=== PATIENT | female | born 1965 | race Caucasian/White ===

== ENCOUNTER → 2019-05-11 19:53 | Outpatient (CLI) | payer OTHER, SELFPAY | PROVIDERS: Visit Provider Physician Assistant | DX: N30.01 Acute cystitis with hematuria (principal) | CPT/HCPCS: 87077; 87086; 87186 ==

== ENCOUNTER → 2020-07-05 07:21 | Outpatient (CLI) | payer OTHER, SELFPAY ==
[2020-07-05 12:14] LABS: Add Manual Diff / Slide Review NO; Basophils Absolute Auto 0 /uL (0-100); Eosinophils Absolute Auto 100 /uL (0-450); Eosinophils Percent Auto 2.1 % (2-4); Hematocrit 40.6 % (36-46); Hemoglobin 13.5 g/dL (12.0-16.0); Lymphocytes Absolute Auto 1000 /uL (1100-4500); Lymphocytes Percent Auto 23.5 % (25-40); Mean Corpuscular HGB Conc 33.3 % (30-36); Mean Corpuscular Hemoglobin 31.3 PG (26-34); Monocytes Absolute Auto 300 /uL (0-900); Monocytes Percent Auto 7.8 % (3-14); Neutrophils Absolute Auto 2900 /uL (1500-7000); Neutrophils Percent Auto 65.6 % (50-75); Platelet Count 143 X10^3/uL (150-400); Red Blood Cell Count 4.32 X10^6/uL (4.0-5.2); Red Cell Distribution Width 13.3 % (11.6-14.8); White Blood Cell Count 4.4 X10^3/uL (4.5-11.0)
[2020-07-05 12:37] LABS: BUN Creatinine Ratio 29.3 (6-22); Blood Urea Nitrogen 12 mg/dL (7-17); Calcium 9.2 mg/dL (8.4-10.2); Carbon Dioxide 27 mmol/L (22-32); Chloride 106 mmol/L (98-107); Cholesterol 168 mg/dL (140-199); Estimated Glomerular Filt Rate > 60.0 mL/min (>60); Glucose 79 mg/dL (70-100); HDL Cholesterol 59 mg/dL (40-60); HEMOLYSIS < 15 (0-50); LDL Cholesterol Calculated 95 mg/dL (<100); Potassium 3.9 mmol/L (3.4-5.1); Sodium 140 mmol/L (137-145); Triglycerides 70 mg/dL (35-150)
[2020-07-05 13:08] LABS: Thyroid Stimulating Hormone 1.69 uIU/mL (0.47-4.68)
== END ==
PROVIDERS: Referring Provider Nurse Practitioner Family; Visit Provider Nurse Practitioner Family
DX: Z00.00 Encounter for general adult medical examination without abnormal findings (principal); R53.83 Other fatigue
CPT/HCPCS: 36415; 80048; 80061; 84443; 85025

== ENCOUNTER 2020-09-06 20:27 | Emergency (ER) | payer OTHER, SELFPAY ==
[2020-09-06 20:31] VITALS: TEMP 36.8; BMI 30.4
--- NOTE | 2020-09-06 20:35 | DI.RAD.S_ITS ---
PROCEDURE: XR FINGER LT MIN 2V INDICATIONS: dog bite TECHNIQUE: AP hand, 2 views of the 2nd finger(s) acquired. COMPARISON: None. FINDINGS: Bones: No fractures or dislocations. No suspicious bony lesions. Soft tissues: No suspicious soft tissue calcifications. No radiopaque foreign body is seen. IMPRESSION: No acute 2nd finger fracture or dislocation. No radiopaque foreign body. Dictated by: Brooks Marshall M.D. on 09/06/2020 at 20:45 Approved by: Brooks Marshall M.D. on 09/06/2020 at 20:45
[2020-09-06 21:53] VITALS: BP 115/67; PULSE 63; O2SAT 98
[2020-09-06] MEDS: TET,DIPH,PERTUSS(ACELL),VAC/PF 0.5 ML SYRINGE IM (21:56)
--- NOTE | 2020-09-06 22:36 | ED_ITS ---
HPI - Animal Bite General Chief Complaint: Animal Bite Stated Complaint: dog bite to left hand Time Seen by Provider: 09/06/20 22:35 Source: patient Mode of arrival: Ambulatory Limitations: no limitations History of Present Illness HPI narrative: Otherwise healthy 55-year-old woman was playing with her 2 dogs when the dogs got into a bit of the tonsil and and trying to separate them 1 of them bit at her fingers and caused her left 1st finger fingernail to avulse. There is no other bite wounds are arenas. She has no other specific complaints. Related Data Home Medications Medication Instructions Recorded Confirmed azelaic acid 15 % topical gel 1 applictn TOP BID 12/01/18 05/11/19 levonorgestrel 20 mcg/24 hours (6 INTRAUTERINE each 12/01/18 05/11/19 yrs) 52 mg intrauterine device metronidazole 1 % topical gel 1 applictn TOP DAILY 12/01/18 05/11/19 Previous Rx's Medication Instructions Recorded phenazopyridine 100 mg tablet 100 mg PO TID PRN 0 Days #6 tab 05/11/19 Allergies Allergy/AdvReac Type Severity Reaction Status Date / Time ciprofloxacin [From Cipro] Allergy Verified 09/06/20 20:31 Review of Systems Review of Systems Narrative: Pertinent positive and negative findings as per HPI Remainder of review of systems is otherwise unremarkable for Constitutional: Fevers, chills, weakness ENT: No sore throat, neck pain, ear pain CV: Chest pain, palpitations, Respiratory: Cough, wheeze, dyspnea GI: Nausea, vomiting, diarrhea, Patient History Medical History (Updated 09/06/20 @ 23:24 by Rosalinda Eric MD) Dermoid cyst of left ovary Social History Smoking Status: Never smoker Smoking Status: Never smoker alcohol intake frequency: holidays/special occasions only Substance Use Type: does not use Exam Narrative Exam Narrative: General: Alert appropriate in no acute distress Respiratory: Able to speak in full sentences, no obvious respiratory distress Skin: No obvious rashes, warm and dry Neurologic: Grossly intact no obvious asymmetries or abnormalities Psych, appropriate insight and affect, cooperative Extremity: Left hand is examined. Completely neurovascularly intact. The index nail has been partially avulsed. There does not appear to be significant damage to the nail bed itself. Approximately half the distal portion of the nail is still firmly attached to the nail bed. Initial Vital Signs Initial Vital Signs: Vital Signs Temperature 98.3 F 09/06/20 20:31 Procedures [facility] Procedure Name of Procedure: Left 1st finger nail removal Side (if applicable): left Technique/Description of procedure performed: Using 3 cc of 0.5% lidocaine the area was anesthetized and with blunt dissection the nail was gently lifted off from the nail bed without complication. Patient tolerated procedure: Well Complications: none Course Orders Ordered: ED Orders 09/06/20 20:35 XR finger LT min 2V Stat Discontinued Medications Diphtheria/Tetanus/Acell Pertussis (Tet,Diph,Pertuss(Acell),Vac/Pf 0.5 Ml Syringe) 0.5 ml IM .ONCE ONE Stop: 09/06/20 21:18 Last Admin: 09/06/20 21:56 Dose: 0.5 ml Documented by: FRANKIE Lidocaine/Sodium Bicarbonate (Lido 1%/Sod Bicarb 8.4% (10ml) 10 Ml Syringe) 10 ml INJ NOW ONE Stop: 09/06/20 22:49 Last Admin: 09/06/20 23:36 Dose: 10 ml Documented by: FRANKIE Vital Signs Vital signs: Vital Signs - 8 hr 09/06/20 20:31 09/06/20 21:53 09/06/20 23:38 Temperature 98.3 F Pulse Rate 63 64 Respiratory Rate 18 Blood Pressure 115/67 108/64 Pulse Oximetry 98 100 [facility] - Animal Bite Medical Records Attestation: I reviewed the patient's medical records. [facility] Narrative Medical decision making narrative: 55-year-old woman with a minor injury to the left 1st finger nail in trying to separate her 2 dogs. With shared decision making we opted to completely remove the nail as the proximal portion had been pulled out of the nail bed and would continue to catch on anything that she was touching until the nail was ripped off accidentally. Titer dressing was placed in the emergency room for hemostasis with very clear instructions to remove this dressing within 1-2 hours and replace it with 1 that was not as restrictive. Patient clearly understands. Went over signs and symptoms of increasing infection and anticipatory guidance for wound healing. She is safe for home discharge Discharge Plan Departure Patient Disposition: Home Clinical Impression: Avulsion of nail Dog bite Qualifiers: Encounter type: initial encounter Qualified Code(s): W54.0XXA - Bitten by dog, initial encounter Instructions: DI for Nail Avulsion Injury Activity Restrictions/Additional Instructions: Thank you for coming in today In interrupting your dogs, you avulsed your fingernail. It does not look like you injured the nail bed so I would expect the new nail to grow out completely normally. The naked bit of tissue that was under the nail will take a day or 2 to begin to heal. Please keep a Band-Aid and some Neosporin or other ointment over that area of your finger and till it is no longer tender. If you notice increasing pain inflammation or other changes it would be very appropriate to have your finger re-evaluated Good luck with your [facility] home. I hope you get to live happily ever after;) Prescriptions: No Action phenazopyridine [Pyridium] 100 mg tablet 100 mg PO TID PRN (Reason: pain) 0 Days Qty: 6 RF: 0 Mirena 20 mcg/24 hours (5 yrs) 52 mg intrauterine device Intrauterine RF: 0 metronidazole [Metrogel] 1 % gel 1 applictn TOP DAILY RF: 0 azelaic acid [Finacea] 15 % gel 1 applictn TOP BID RF: 0
[2020-09-06] MEDS: LIDO 1%/SOD BICARB 8.4% (10ML) 10 ML SYRINGE INJ (23:36)
[2020-09-06 23:38] VITALS: BP 108/64; PULSE 64; RESP 18; O2SAT 100
== END 2020-09-06 23:38 | disposition home or self-care (01) ==
PROVIDERS: Emergency Provider Emergency Medicine
DX: S61.152A Open bite of left thumb with damage to nail, initial encounter (principal); W54.0XXA Bitten by dog, initial encounter; Z23 Encounter for immunization
CPT/HCPCS: 11750; 73140; 90471; 99283; 90715

== ENCOUNTER 2021-04-07 08:15 | Outpatient (RCR) | payer OTHER, SELFPAY ==
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
--- NOTE | 2021-03-02 13:36 | PT.OPPOC ---
Physical, Occupational & Speech Therapy At [facility] Current Diagnoses Pain in left shoulder (03/02/21) Visit Care Team Role Provider Type SULTANA Sy Primary Care Provider Non-Staff Specialty: Medical Address: [address] [place] [address], [phone] Email: Daphne Hauser PA-C Attending Provider Non-Staff Referring Provider Specialty: Medical Address: [address] [place] [address], [id number] Email: Plan Of Care PT-OP-T Assessment and Plan Start: 03/02/21 08:24 Freq: Status: Active Protocol: Document 03/02/21 08:15 AMB (Rec: 03/02/21 13:35 AMB [email or web address]) Physical Therapy Assessment Rehab Potential Rehabilitation Potential Good Evaluation Complexity Number of Personal Factors/Comorbidities 1-2 Number of Body Systems Impaired 4 or More Clinical Presentation at Evaluation Evolving Impairments Impairments Functional Activities,Pain,ROM ,Strength Goals Four Impairment Pain Care Home Goal (LTG) Sy will be able to sleep on her left shoulder at night without an increase in pain. LTG Duration 8 weeks Three Impairment Strength Short Term Goal (STG) Sy will improve her shoulder abduction strength to 4+/5 or greater. STG Duration 4 weeks Two Impairment HEP Short Term Goal (STG) Sy will be independent and consistent with a HEP to improve her L shoulder strength and ROM. STG Duration 4 weeks Care Home Goal (LTG) Sy will return to yoga and her aquatic exercise without an increase in her baseline shoulder pain. LTG Duration 8 weeks One Impairment ROM Short Term Goal (STG) Sy will improve her shoulder flexion AROM to 170 degrees. STG Duration 4 weeks Assessment Summary Assessment Sy attends physical therapy with recent onset increase in left shoulder pain . Testing for glenohumeral impingement was positive, but negative for rotator cuff pathology. She does have poor posture and scapular winging. She will benefit from physical therapy to first help her control the inflammation and then strengthen appropriately to help her return to exercise re: scuba diving, yoga, aquatics. Physical Therapy Plan Frequency and Duration Frequency of Treatment 2x/Week Duration of Treatment 8 weeks Plan of Care Start Date 03/02/21 Plan of Care End Date 04/27/21 Therapeutic Interventions Therapeutic Interventions Joint Mobilizations,Manual Therapy,Neuromuscular Re- education,Self-Care/Home Management,Therapeutic Activities,Therapeutic Exercises Modalities Cold Pack/Ice Massage,Electric Stimulation,Hot Packs, Ultrasound Next Visit Focus/Plan Next Note Type Treatment Note Next Visit Plan Begin HEP: stretching, RTC strengthening, inflammation control Plan of Care Dates Plan of Care Start Date 03/02/21 Plan of Care End Date 04/27/21 Electronically Signed by: Ashtyn Thomas, PT 03/02/21 [id number] Please Sign and Return: I have reviewed this Plan of Care and certify that the skilled therapy services above are required to meet the patient?s needs. Physician Signature Date Printed Name and Credentials Clinical Instructor Signature Printed Name and Credentials
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
== END 2021-05-07 09:29 ==
LOC: PHYS 08:15
PROVIDERS: PCP Nurse Practitioner Family; Referring Provider Physician Assistant; Visit Provider Physician Assistant
DX: M25.512 Pain in left shoulder (principal)
CPT/HCPCS: 97014; 97110; 97112; 97140; 97162; 97535; G0283

== ENCOUNTER → 2021-09-27 16:15 | Outpatient (CLI) | payer OTHER, SELFPAY ==
[2021-09-27 18:03] LABS: Follicle Stimulating Hormone 53.2 mIU/mL
[2021-09-29 18:07] LABS: Antithrombin Activity 98 % (75-135); Antithrombin Antigen 116 % (72-124)
== END ==
PROVIDERS: PCP Nurse Practitioner Family; Referring Provider Nurse Practitioner Family; Visit Provider Nurse Practitioner Family
DX: Z83.2 Family history of diseases of the blood and blood-forming organs and certain disorders involving the immune mechanism (principal)
CPT/HCPCS: 36415; 83001; 85300; 85301

== ENCOUNTER → 2021-11-22 18:49 | Outpatient (CLI) | payer OTHER, SELFPAY | PROVIDERS: PCP Nurse Practitioner Family; Visit Provider Nurse Practitioner Family | DX: R35.0 Frequency of micturition (principal) | CPT/HCPCS: 87077; 87086; 87186 ==

== ENCOUNTER → 2022-09-12 19:05 | Outpatient (CLI) | payer OTHER, SELFPAY ==
--- NOTE | 2022-09-12 19:07 | DI.MRI.S_ITS ---
PROCEDURE: MR SHOULDER LT WO CON INDICATIONS: left shoulder pain TECHNIQUE: Noncontrast oblique coronal T2 fast spin echo with fat saturation, oblique sagittal T1 spin echo and T2 fast spin echo with fat saturation, axial T1 spin echo and T2 fast spin echo with fat saturation through the shoulder. COMPARISON: [facility], CR, XR SHOULDER 2+ VIEWS LEFT, 07/02/2022, 14:42. FINDINGS: Image quality: Excellent. Rotator cuff: Moderate grade partial-thickness intrasubstance and articular surface tears of the mid/inferior subscapularis tendon at the humeral insertion site extending to the musculotendinous junction. Low-grade partial-thickness intrasubstance tearing of the anterior and mid supraspinatus tendon at the humeral insertion site extending the musculotendinous junction. Low-grade partial-thickness articular surface tearing of the mid and posterior infraspinatus tendon at the humeral insertion site extending to the musculotendinous junction. Teres minor is intact. No rotator cuff atrophy. Bones and bursae: No bone marrow contusions or fractures. Mild glenohumeral and acromioclavicular joint degeneration. The acromion demonstrates conventional anatomy, without an os acromiale. No pathologic subacromial-subdeltoid or subcoracoid bursal fluid is present. Capsule and soft tissues: Irregularity and undercutting of the posterosuperior glenoid labrum. The long head of the biceps tendon demonstrates normal location and morphology. The rotator interval appears normal, without fibrosis. The coracohumeral ligament is normal in thickness. IMPRESSION: 1. Partial-thickness tears of the subscapularis, supraspinatus, and infraspinatus tendons. No full-thickness rotator cuff tear. 2. Acromioclavicular and glenohumeral joint osteoarthritis. 3. Glenoid labral tearing. Dictated by: Claudette Russell M.D. on 09/13/2022 at 9:05 Approved by: Claudette Russell M.D. on 09/13/2022 at 9:07
== END ==
PROVIDERS: Family Provider Nurse Practitioner Family; PCP Nurse Practitioner Family; Referring Provider Orthopaedic Surgery; Visit Provider Orthopaedic Surgery
DX: M75.112 Incomplete rotator cuff tear or rupture of left shoulder, not specified as traumatic (principal); M19.012 Primary osteoarthritis, left shoulder; S43.492A Other sprain of left shoulder joint, initial encounter; M25.512 Pain in left shoulder
CPT/HCPCS: 73221

== ENCOUNTER → 2022-10-26 06:53 | Outpatient (CLI) | payer OTHER, SELFPAY ==
[2022-10-26 07:51] LABS: Add Manual Diff / Slide Review NO; Basophils Absolute Auto 100 /uL (0-100); Basophils Percent Auto 1.5 % (0-2); Eosinophils Absolute Auto 100 /uL (0-450); Eosinophils Percent Auto 2.5 % (2-4); Hematocrit 40.4 % (36-46); Hemoglobin 13.8 g/dL (12.0-16.0); Lymphocytes Absolute Auto 1400 /uL (1100-4500); Lymphocytes Percent Auto 36.4 % (25-40); Mean Corpuscular HGB Conc 34.3 % (30-36); Mean Corpuscular Hemoglobin 31.5 PG (26-34); Mean Corpuscular Volume 92.1 fL (80-100); Monocytes Absolute Auto 400 /uL (0-900); Monocytes Percent Auto 9.1 % (3-14); Neutrophils Absolute Auto 2000 /uL (1500-7000); Neutrophils Percent Auto 50.5 % (50-75); Platelet Count 161 X10^3/uL (150-400); Red Blood Cell Count 4.39 X10^6/uL (4.0-5.2); Red Cell Distribution Width 13.3 % (11.6-14.8); White Blood Cell Count 3.9 X10^3/uL (4.5-11.0)
[2022-10-26 08:29] LABS: Alanine Aminotransferase 21 IU/L (<35); Albumin 4.3 g/dL (3.5-5.0); Albumin Globulin Ratio 1.6 (1.0-2.8); Alkaline Phosphatase 49 U/L (38-126); Aspartate Aminotransferase 22 IU/L (14-36); Bilirubin Total 1.4 mg/dL (0.2-1.3); Blood Urea Nitrogen 9 mg/dL (7-17); Calcium 9.2 mg/dL (8.4-10.2); Carbon Dioxide 26 mmol/L (22-32); Chloride 107 mmol/L (98-107); Cholesterol 166 mg/dL (140-199); Estimated Glomerular Filt Rate > 60 mL/min (>60); Globulin 2.7 g/dL (1.7-4.1); Glucose 88 mg/dL (70-100); HDL Cholesterol 61 mg/dL (40-60); HEMOLYSIS < 15 (0-50); LDL Cholesterol Calculated 88 mg/dL (<100); Potassium 4.4 mmol/L (3.4-5.1); Sodium 140 mmol/L (137-145); Triglycerides 83 mg/dL (35-150)
== END ==
PROVIDERS: Family Provider Nurse Practitioner Family; PCP Nurse Practitioner Family; Referring Provider Nurse Practitioner Family; Visit Provider Nurse Practitioner Family
DX: Z00.00 Encounter for general adult medical examination without abnormal findings (principal)
CPT/HCPCS: 36415; 80053; 80061; 84443; 85025

== ENCOUNTER 2023-01-23 08:45 | Outpatient (RCR) | payer OTHER, SELFPAY ==
--- NOTE | 2022-10-02 17:54 | PT.OIE ---
Current Diagnoses Edema, unspecified (10/02/22) Past Medical History (Last Updated 03/25/19 @ 09:30 by Alize Castañeda MD) Dermoid cyst of left ovary Visit Care Team Role Provider Type SULTANA Sy Family Provider Non-Staff Primary Care Provider Specialty: Medical Address: [address] [place] [address], [place], [phone] Email: Mable Rome DNP, SULTANA Attending Provider Non-Staff Referring Provider Specialty: Medical Address: [address] [place] [address], [place], [address] Email: Physical Therapy Initial Evaluation PT-OP-A Visit Information Start: 10/01/22 17:44 Freq: Status: Active Protocol: Document 10/02/22 14:35 SAK (Rec: 10/02/22 16:16 SAK [id number]) Out-Patient Physical Therapy Visit Information Visit Information Visit Type Initial Evaluation Visit Start Time 14:36 Visit Stop Time 16:00 Total Visit Minutes 84 Visit Number 1 Evaluation Information Evaluation Date 10/02/22 PT-OP-B Current Condition Start: 10/01/22 17:44 Freq: Status: Active Protocol: Document 10/02/22 14:35 SAK (Rec: 10/02/22 16:16 SAK [id number]) Current Condition History of Current Condition Onset Date lifetime Current Complaints swelling beata LE's History of Current Condition Reports self-diagnosed after seeing a post online about a person with lipedema, did research online read books, after 4 months went to nurse practicitioner to discuss as she felt she had all symptoms. Referred to Sherry Ramirez for lymphatic massage, felt helpful. Per researched recommendations started going to the pool 2x/wk for 30 min, new goal 3x/wk x 1 hour finds helpful in decreasing edema. Has a dry brush for self- massage, bought a wedge pillow for elevating legs. Doesn't tolerate compression well, has ordered several pairs panty hose style but is only able to tolerate for a couple hours a few times per week. . Travels a lot. Seeing Randa Beal PT for shoulder dysfunction. New dietary and vitamin supplements goals; eating [place] nuts and flax daily, multivitamin, 2000 Vit D, calcium, tumeric, walks dogdrink a lot of water. States she is the heaviest she has ever been feeling swelling is a part of this. Just ordered a vibration plate . Has played around with diet . Pt. is a vegetarian, minimal dairy. Swelling increases with prolonged standing, legs dependent salt. Decreased with massage, pool, elevation. Reports she bruises easily. Prior Treatments and Tests Massage therapy Treatment Goals Patient/Caregiver Goals compression 3x/wk x 3 hours pool 3x/wk shoulder PT 3x/wk. Prior Functional Status Baseline Function- ADL's Independent Baseline Function- Mobility Independent Baseline Function- Gait no limitations Baseline Function- Recreation/Hobbies no limitations Current Functional Impairments (Reported) Functional Limitations- ADL's takes more time Functional Limitations- Mobility/Gait limited gait due to heaviness of legs PT-OP-J Posture/Palpation/Skin Start: 10/01/22 17:44 Freq: Status: Active Protocol: Document 10/02/22 14:35 [facility] (Rec: 10/04/22 17:54 [facility] [id number]) Palpation Assessment Location beata LE Palpation Findings Edema,Tenderness Palpation Details excess fatty deposits worst at lateral thighs, distal thighs with dimpling, tenderness PT-OP-K Range of Motion Start: 10/01/22 17:44 Freq: Status: Active Protocol: Document 10/02/22 14:35 [facility] (Rec: 10/04/22 17:54 [facility] [id number]) Hip Goniometric Range of Motion Hip beata Hip ROM WFL Yes Knee Goniometric Range of Motion Knee beata Knee ROM WFL Yes Ankle and Foot Goniometric Range of Motion Ankle and Foot beata Ankle/Foot ROM WFL Yes PT-OP-N Lymphedema Start: 10/01/22 17:44 Freq: Status: Active Protocol: Document 10/02/22 14:35 [facility] (Rec: 10/02/22 16:16 [facility] [id number]) Lymphedema Measurements Lower Extremity Circumference Measurements Left Affected MT Heads 24.8 cm Mid-foot 25 cm Medial Malleolus 27 cm 10 cm From Medial Malleolus 31.2 cm 20 cm From Medial Malleolus 40.1 cm 30 cm From Medial Malleolus 45 cm 40 cm From Medial Malleolus 43.5 cm 50 cm From Medial Malleolus 53.9 cm 60 cm From Medial Malleolus 63.8 cm 70 cm From Medial Malleolus 69.9 cm 80 cm From Medial Malleolus 73.7 cm Knee Joint 49.8 cm Right Affected MT Heads 25.2 cm Mid-foot 24.8 cm Medial Malleolus 28.2 cm 10 cm From Medial Malleolus 32.5 cm 20 cm From Medial Malleolus 41.2 cm 30 cm From Medial Malleolus 45 cm 40 cm From Medial Malleolus 44.3 cm 50 cm From Medial Malleolus 53.3 cm 60 cm From Medial Malleolus 66.2 cm 70 cm From Medial Malleolus 71.8 cm 80 cm From Medial Malleolus 76.5 cm Knee Joint 48 cm PT-OP-Q Treatments Start: 10/01/22 17:44 Freq: Status: Active Protocol: Document 10/02/22 14:35 [facility] (Rec: 10/04/22 17:54 [facility] [id number]) Lymphedema Treatment Compression Garment Assessment Compression Garment Assessment Details Discussion of options, shown examples online, discussed levels of compression and benefits, wearing schedule, importance of consistency Patient Education Lymphedema Pathology patient educated Lymphedema Prevention issued written handouts Compression Garments discussed as above Self Manual Lymphatic Drainage discussed and given video source for home ed PT-OP-T Assessment and Plan Start: 10/01/22 17:44 Freq: Status: Active Protocol: Document 10/02/22 14:35 [facility] (Rec: 10/02/22 16:16 [facility] [id number]) Physical Therapy Assessment Rehab Potential Rehabilitation Potential Good Evaluation Complexity Number of Personal Factors/Comorbidities 1-2 Number of Body Systems Impaired 3 Clinical Presentation at Evaluation Evolving Impairments Impairments Activity Tolerance,Edema Goals Two Impairment swelling beata LE's with signs and symptoms consistent with lipedema Short Term Goal (STG) Instruct patient in all aspects of lipedema management including skin care, self-MLD , compression, lymphedema ex STG Duration 11/02/22 Guest Relations Associate Goal (LTG) Decrease lipedema to stable level (no inc or dec greater than 1 cm over the course of 1 week), assist patient in obtaining effective compression that she is able to tolerate, and assure independence with self MLD, lymphedema exercises LTG Duration 12/02/22 One Impairment lymphedema life impact scale Impairment 22% Short Term Goal (STG) Decrease lymphedema life impact scale to no greater than 15% as measure of improved function and quality of life STG Duration 11/02/22 Residential Goal (LTG) Decrease score to no greater than 10% as measure of improved function and quality of life. 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 We discussed recommended treatment with skin care, manual lymphatic drainage, compression and lymphedema exercises. Per patient research she has obtained several pant-hose style compression stockings of various compression level but states she doesn't tolerate compression well (about 2 hours/day several times per week). She has started doing aquatic exercise mostly walking in water, is doing some self-massage, is looking into diet and supplement recommendations. Looking into support groups online, would like a local one. Feel she would benefit from PT to decrease her lipedema, assure safe and effective self massage, instruct in lymphedema exercises, assure she obtains effective compression that she can tolerate, and educate in importance of skin care all so she can self-manage her lipedema. Physical Therapy Plan Frequency and Duration Frequency of Treatment 2x/Week Duration of treatment (weeks) 8 Plan of Care Start Date 10/02/22 Plan of Care End Date 12/02/22 Therapeutic Interventions Therapeutic Interventions Home Exercise Program, Lymphedema Management,Manual Therapy,Patient/Caregiver Education,Self-Care/Home Management,Taping,Therapeutic Exercises Next Visit Focus/Plan Next Note Type Treatment Note Next Visit Plan MLD beata LE's, further problem- solving compression for beata LE 's, skin care and lymphedema exercise education.
--- NOTE | 2022-10-02 17:55 | PT.OPPOC ---
Physical, Occupational & Speech Therapy At [facility] Current Diagnoses Edema, unspecified (10/02/22) Visit Care Team Role Provider Type SULTANA Sy Family Provider Non-Staff Primary Care Provider Specialty: Medical Address: [address] [place] [address], [phone] Email: Mable Rome DNP, ARNP Attending Provider Non-Staff Referring Provider Specialty: Medical Address: [address] [place] [address], [id number] Email: Plan Of Care PT-OP-T Assessment and Plan Start: 10/01/22 17:44 Freq: Status: Active Protocol: Document 10/02/22 14:35 [facility]AK (Rec: 10/02/22 16:16 SAK [id number]) Physical Therapy Assessment Rehab Potential Rehabilitation Potential Good Evaluation Complexity Number of Personal Factors/Comorbidities 1-2 Number of Body Systems Impaired 3 Clinical Presentation at Evaluation Evolving Impairments Impairments Activity Tolerance,Edema Goals Two Impairment swelling beata LE's with signs and symptoms consistent with lipedema Short Term Goal (STG) Instruct patient in all aspects of lipedema management including skin care, self-MLD , compression, lymphedema ex STG Duration 11/02/22 Alf Goal (LTG) Decrease lipedema to stable level (no inc or dec greater than 1 cm over the course of 1 week), assist patient in obtaining effective compression that she is able to tolerate, and assure independence with self MLD, lymphedema exercises LTG Duration 12/02/22 One Impairment lymphedema life impact scale Impairment 22% Short Term Goal (STG) Decrease lymphedema life impact scale to no greater than 15% as measure of improved function and quality of life STG Duration 11/02/22 Programming Specialist Goal (LTG) Decrease score to no greater than 10% as measure of improved function and quality of life. 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 We discussed recommended treatment with skin care, manual lymphatic drainage, compression and lymphedema exercises. Per patient research she has obtained several pant-hose style compression stockings of various compression level but states she doesn't tolerate compression well (about 2 hours/day several times per week). She has started doing aquatic exercise mostly walking in water, is doing some self-massage, is looking into diet and supplement recommendations. Looking into support groups online, would like a local one. Feel she would benefit from PT to decrease her lipedema, assure safe and effective self massage, instruct in lymphedema exercises, assure she obtains effective compression that she can tolerate, and educate in importance of skin care all so she can self-manage her lipedema. Physical Therapy Plan Frequency and Duration Frequency of Treatment 2x/Week Duration of treatment (weeks) 8 Plan of Care Start Date 10/02/22 Plan of Care End Date 12/02/22 Therapeutic Interventions Therapeutic Interventions Home Exercise Program, Lymphedema Management,Manual Therapy,Patient/Caregiver Education,Self-Care/Home Management,Taping,Therapeutic Exercises Next Visit Focus/Plan Next Note Type Treatment Note Next Visit Plan MLD beata LE's, further problem- solving compression for beata LE 's, skin care and lymphedema exercise education. Plan of Care Dates Plan of Care Start Date 10/02/22 Plan of Care End Date 12/02/22 Electronically Signed by: Rosa Maria Michelle, PT 10/04/22 2353 If you are in agreement with this Plan of Care, please return a signed and dated copy. I have reviewed this Plan of Care and certify that the skilled therapy services above are required to meet the patient?s needs. Physician Signature Date Printed Name and Credentials Clinical Instructor Signature Printed Name and Credentials
--- NOTE | 2022-10-11 14:02 | PT.OTN ---
Addendum entered and electronically signed by Rosa Maria Michelle, PT 10/25/22 14:03: Addendum; treatment visit stop time 12:02. Original Note: Current Diagnoses Edema, unspecified (10/25/22) Physical Therapy Treatment Note PT-OP-A Visit Information Start: 10/01/22 17:44 Freq: Status: Active Protocol: Document 10/25/22 10:32 [facility]AK (Rec: 10/25/22 10:35 SAK [id number]) Out-Patient Physical Therapy Visit Information Visit Information Visit Type Treatment Note Visit Start Time 10:32 Visit Stop Time 04:00 Total Visit Minutes 90 Visit Number 4 Evaluation Information Evaluation Date 10/02/22 PT-OP-B Current Condition Start: 10/01/22 17:44 Freq: Status: Active Protocol: Document 10/11/22 10:29 [facility]AK (Rec: 10/11/22 10:40 SAK [id number]) Current Condition History of Current Condition Onset Date lifetime Current Complaints swelling beata LE's History of Current Condition Reports self-diagnosed after seeing a post online about a person with lipedema, did research online read books, after 4 months went to nurse practicitioner to discuss as she felt she had all symptoms. Referred to Sherry Ramirez for lymphatic massage, felt helpful. Per researched recommendations started going to the pool 2x/wk for 30 min, new goal 3x/wk x 1 hour finds helpful in decreasing edema. Has a dry brush for self- massage, bought a wedge pillow for elevating legs. Doesn't tolerate compression well, has ordered several pairs panty hose style but is only able to tolerate for a couple hours a few times per week. . Travels a lot. Seeing Randa Beal PT for shoulder dysfunction. New dietary and vitamin supplements goals; eating [place] nuts and flax daily, multivitamin, 2000 Vit D, calcium, tumeric, walks dogdrink a lot of water. States she is the heaviest she has ever been feeling swelling is a part of this. Just ordered a vibration plate . Has played around with diet . Pt. is a vegetarian, minimal dairy. Swelling increases with prolonged standing, legs dependent salt. Decreased with massage, pool, elevation. Reports she bruises easily. Prior Treatments and Tests Massage therapy PT-OP-J Posture/Palpation/Skin Start: 10/01/22 17:44 Freq: Status: Active Protocol: Document 10/02/22 14:35 [facility]AK (Rec: 10/04/22 17:54 SAK [id number]) Palpation Assessment Location beata LE Palpation Findings Edema,Tenderness Palpation Details excess fatty deposits worst at lateral thighs, distal thighs with dimpling, tenderness PT-OP-K Range of Motion Start: 10/01/22 17:44 Freq: Status: Active Protocol: Document 10/02/22 14:35 [facility]AK (Rec: 10/04/22 17:54 [facility] [id number]) Hip Goniometric Range of Motion Hip beata Hip ROM WFL Yes Knee Goniometric Range of Motion Knee beata Knee ROM WFL Yes Ankle and Foot Goniometric Range of Motion Ankle and Foot beata Ankle/Foot ROM WFL Yes PT-OP-N Lymphedema Start: 10/01/22 17:44 Freq: Status: Active Protocol: Document 10/25/22 10:32 SAK (Rec: 10/25/22 10:38 [facility] [id number]) Lymphedema Measurements Lower Extremity Circumference Measurements Left Affected MT Heads 24.8 cm PT-OP-Q Treatments Start: 10/01/22 17:44 Freq: Status: Active Protocol: Document 10/25/22 10:32 SAK (Rec: 10/25/22 10:39 SAK [id number]) Lymphedema Treatment Manual Lymphatic Drainage Location for beata LE's Duration 40 Comments supine, s/l, and prone Use of pneumatic pump left LE while supine, PT MLD to trunk and right LE during pump use Sequential Lymphedema Exercises Location Sci-Fit x 5 min after MLD to facilitate lymphatic flow PT-OP-T Assessment and Plan Start: 10/01/22 17:44 Freq: Status: Active Protocol: Document 10/25/22 10:32 SAK (Rec: 10/25/22 10:35 [facility] [id number]) Physical Therapy Assessment Impairments Impairments Activity Tolerance,Edema Goals Two Impairment swelling beata LE's with signs and symptoms consistent with lipedema Short Term Goal (STG) Instruct patient in all aspects of lipedema management including skin care, self-MLD , compression, lymphedema ex STG Duration 11/02/22 Mcc Goal (LTG) Decrease lipedema to stable level (no inc or dec greater than 1 cm over the course of 1 week), assist patient in obtaining effective compression that she is able to tolerate, and assure independence with self MLD, lymphedema exercises LTG Duration 12/02/22 One Impairment lymphedema life impact scale Impairment 22% Short Term Goal (STG) Decrease lymphedema life impact scale to no greater than 15% as measure of improved function and quality of life STG Duration 11/02/22 Mcc Goal (LTG) Decrease score to no greater than 10% as measure of improved function and quality of life. LTG Duration 12/02/22 Assessment Summary Assessment Decreased circumferential measurements after compression pump and MLD. given info for [employer] to obtain lymphedema pump for home use. Patient to pursue and PT to assist as needed. Patient trial layering of compression for first time today. Physical Therapy Plan Frequency and Duration Frequency of Treatment 2x/Week Duration of treatment (weeks) 8 Plan of Care Start Date 10/02/22 Plan of Care End Date 12/02/22 Therapeutic Interventions Therapeutic Interventions Home Exercise Program, Lymphedema Management,Manual Therapy,Patient/Caregiver Education,Self-Care/Home Management,Taping,Therapeutic Exercises Next Visit Focus/Plan Next Note Type Treatment Note Next Visit Plan circumferential measurements MLD beata LE's, further problem- solving compression for beata LE 's, use of compression pump, skin care and lymphedema exercises. Patient to pursue pump through [employer]; information given to patient today.
--- NOTE | 2022-10-18 16:24 | PT.OTN ---
Current Diagnoses Edema, unspecified (10/18/22) Physical Therapy Treatment Note PT-OP-A Visit Information Start: 10/01/22 17:44 Freq: Status: Active Protocol: Document 10/18/22 10:32 [facility]AK (Rec: 10/18/22 10:58 [facility] [id number]) Out-Patient Physical Therapy Visit Information Visit Information Visit Type Treatment Note Visit Note Some of pain and discomfort is back in ankles possibly due to having more carbs. Has been pretty good about wearing compression but hasn't the past couple days, felt overwhelmed with having company and other medical appointments but overall gradually increasing her wear. Has gone to pool a couple days over the past week. Visit Start Time 10:33 Visit Stop Time 12:03 Total Visit Minutes 90 Visit Number 3 Evaluation Information Evaluation Date 10/02/22 PT-OP-B Current Condition Start: 10/01/22 17:44 Freq: Status: Active Protocol: Document 10/11/22 10:29 SAK (Rec: 10/11/22 10:40 [facility] [id number]) Current Condition History of Current Condition Onset Date lifetime Current Complaints swelling beata LE's History of Current Condition Reports self-diagnosed after seeing a post online about a person with lipedema, did research online read books, after 4 months went to nurse practicitioner to discuss as she felt she had all symptoms. Referred to Sherry Ramirez for lymphatic massage, felt helpful. Per researched recommendations started going to the pool 2x/wk for 30 min, new goal 3x/wk x 1 hour finds helpful in decreasing edema. Has a dry brush for self- massage, bought a wedge pillow for elevating legs. Doesn't tolerate compression well, has ordered several pairs panty hose style but is only able to tolerate for a couple hours a few times per week. . Travels a lot. Seeing Randa Beal PT for shoulder dysfunction. New dietary and vitamin supplements goals; eating [place] nuts and flax daily, multivitamin, 2000 Vit D, calcium, tumeric, walks dogdrink a lot of water. States she is the heaviest she has ever been feeling swelling is a part of this. Just ordered a vibration plate . Has played around with diet . Pt. is a vegetarian, minimal dairy. Swelling increases with prolonged standing, legs dependent salt. Decreased with massage, pool, elevation. Reports she bruises easily. Prior Treatments and Tests Massage therapy PT-OP-J Posture/Palpation/Skin Start: 10/01/22 17:44 Freq: Status: Active Protocol: Document 10/02/22 14:35 [facility] (Rec: 10/04/22 17:54 [facility] [id number]) Palpation Assessment Location beata LE Palpation Findings Edema,Tenderness Palpation Details excess fatty deposits worst at lateral thighs, distal thighs with dimpling, tenderness PT-OP-K Range of Motion Start: 10/01/22 17:44 Freq: Status: Active Protocol: Document 10/02/22 14:35 SAK (Rec: 10/04/22 17:54 [facility] [id number]) Hip Goniometric Range of Motion Hip beata Hip ROM WFL Yes Knee Goniometric Range of Motion Knee beata Knee ROM WFL Yes Ankle and Foot Goniometric Range of Motion Ankle and Foot beata Ankle/Foot ROM WFL Yes PT-OP-N Lymphedema Start: 10/01/22 17:44 Freq: Status: Active Protocol: Document 10/02/22 14:35 [facility] (Rec: 10/02/22 16:16 [facility] [id number]) Lymphedema Measurements Lower Extremity Circumference Measurements Left Affected MT Heads 24.8 cm Mid-foot 25 cm Medial Malleolus 27 cm 10 cm From Medial Malleolus 31.2 cm 20 cm From Medial Malleolus 40.1 cm 30 cm From Medial Malleolus 45 cm 40 cm From Medial Malleolus 43.5 cm 50 cm From Medial Malleolus 53.9 cm 60 cm From Medial Malleolus 63.8 cm 70 cm From Medial Malleolus 69.9 cm 80 cm From Medial Malleolus 73.7 cm Knee Joint 49.8 cm Right Affected MT Heads 25.2 cm Mid-foot 24.8 cm Medial Malleolus 28.2 cm 10 cm From Medial Malleolus 32.5 cm 20 cm From Medial Malleolus 41.2 cm 30 cm From Medial Malleolus 45 cm 40 cm From Medial Malleolus 44.3 cm 50 cm From Medial Malleolus 53.3 cm 60 cm From Medial Malleolus 66.2 cm 70 cm From Medial Malleolus 71.8 cm 80 cm From Medial Malleolus 76.5 cm Knee Joint 48 cm PT-OP-Q Treatments Start: 10/01/22 17:44 Freq: Status: Active Protocol: Document 10/18/22 10:32 SAK (Rec: 10/18/22 12:12 [facility] [id number]) Cardio Equipment Recumbent Stepper (Sci-Fit) Duration (Minutes) 5 Resistance 1 Seat Position 12 Other to facilitate lymphatic flow after MLD and donning compression Lymphedema Treatment Manual Lymphatic Drainage Location for beata LE's Duration 40 Comments supine, s/l, and prone Use of pneumatic pump left LE while supine, PT MLD to trunk and right LE during pump use Lymphedema Wrapping Materials Patient donned compression stockings 10-15 mm Hg Sequential Lymphedema Exercises Location Sci-Fit x 5 min after MLD to facilitate lymphatic flow Compression Garment Assessment Compression Garment Assessment Details Patient brought all compression options she currently has for PT assessment, discussed layering , best garment 20-30 mm Hg but patient tolerates poorly, recommended best compressin is compression patient is able and willing to wear. Patient Education Lymphedema Prevention issued written handouts Lymphedema Precautions issued handouts Compression Garments discussed as above Self Manual Lymphatic Drainage given names of lymphatic pump companies Sequential Lymphedema Exercises Sci-Fit after MLD today. Has been issued written instructions PT-OP-T Assessment and Plan Start: 10/01/22 17:44 Freq: Status: Active Protocol: Document 10/18/22 10:32 [facility] (Rec: 10/18/22 10:58 [facility] [id number]) Physical Therapy Assessment Impairments Impairments Activity Tolerance,Edema Goals Two Impairment swelling beata LE's with signs and symptoms consistent with lipedema Short Term Goal (STG) Instruct patient in all aspects of lipedema management including skin care, self-MLD , compression, lymphedema ex STG Duration 11/02/22 Irrigation Equipment Mechanic Goal (LTG) Decrease lipedema to stable level (no inc or dec greater than 1 cm over the course of 1 week), assist patient in obtaining effective compression that she is able to tolerate, and assure independence with self MLD, lymphedema exercises LTG Duration 12/02/22 One Impairment lymphedema life impact scale Impairment 22% Short Term Goal (STG) Decrease lymphedema life impact scale to no greater than 15% as measure of improved function and quality of life STG Duration 11/02/22 Irrigation Equipment Mechanic Goal (LTG) Decrease score to no greater than 10% as measure of improved function and quality of life. LTG Duration 12/02/22 Assessment Summary Assessment Good tolerance for sequential pneumatic pump as long as kept no greater than 31 mm Hg, otherwise painful. Good tolerance for MLD, has several compression options though poor tolerance for 20-30 mm Hg . Further discussion of donning aids with patient planning to look at options. Physical Therapy Plan Frequency and Duration Frequency of Treatment 2x/Week Duration of treatment (weeks) 8 Plan of Care Start Date 10/02/22 Plan of Care End Date 12/02/22 Therapeutic Interventions Therapeutic Interventions Home Exercise Program, Lymphedema Management,Manual Therapy,Patient/Caregiver Education,Self-Care/Home Management,Taping,Therapeutic Exercises Next Visit Focus/Plan Next Note Type Treatment Note Next Visit Plan MLD beata LE's, further problem- solving compression for beata LE 's, skin care and lymphedema exercise education.
--- NOTE | 2022-10-25 12:03 | PT.OTN ---
Current Diagnoses Edema, unspecified (10/25/22) Physical Therapy Treatment Note PT-OP-A Visit Information Start: 10/01/22 17:44 Freq: Status: Active Protocol: Document 10/25/22 10:32 SAK (Rec: 10/25/22 10:35 [facility] [id number]) Out-Patient Physical Therapy Visit Information Visit Information Visit Type Treatment Note Visit Start Time 10:32 Visit Stop Time 04:00 Total Visit Minutes 90 Visit Number 4 Evaluation Information Evaluation Date 10/02/22 PT-OP-B Current Condition Start: 10/01/22 17:44 Freq: Status: Active Protocol: Document 10/11/22 10:29 SAK (Rec: 10/11/22 10:40 [facility] [id number]) Current Condition History of Current Condition Onset Date lifetime Current Complaints swelling beata LE's History of Current Condition Reports self-diagnosed after seeing a post online about a person with lipedema, did research online read books, after 4 months went to nurse practicitioner to discuss as she felt she had all symptoms. Referred to Sherry Ramirez for lymphatic massage, felt helpful. Per researched recommendations started going to the pool 2x/wk for 30 min, new goal 3x/wk x 1 hour finds helpful in decreasing edema. Has a dry brush for self- massage, bought a wedge pillow for elevating legs. Doesn't tolerate compression well, has ordered several pairs panty hose style but is only able to tolerate for a couple hours a few times per week. . Travels a lot. Seeing Randa Beal PT for shoulder dysfunction. New dietary and vitamin supplements goals; eating [place] nuts and flax daily, multivitamin, 2000 Vit D, calcium, tumeric, walks dogdrink a lot of water. States she is the heaviest she has ever been feeling swelling is a part of this. Just ordered a vibration plate . Has played around with diet . Pt. is a vegetarian, minimal dairy. Swelling increases with prolonged standing, legs dependent salt. Decreased with massage, pool, elevation. Reports she bruises easily. Prior Treatments and Tests Massage therapy PT-OP-J Posture/Palpation/Skin Start: 10/01/22 17:44 Freq: Status: Active Protocol: Document 10/02/22 14:35 [facility]AK (Rec: 10/04/22 17:54 [facility] [id number]) Palpation Assessment Location beata LE Palpation Findings Edema,Tenderness Palpation Details excess fatty deposits worst at lateral thighs, distal thighs with dimpling, tenderness PT-OP-K Range of Motion Start: 10/01/22 17:44 Freq: Status: Active Protocol: Document 10/02/22 14:35 SAK (Rec: 10/04/22 17:54 [facility] [id number]) Hip Goniometric Range of Motion Hip beata Hip ROM WFL Yes Knee Goniometric Range of Motion Knee beata Knee ROM WFL Yes Ankle and Foot Goniometric Range of Motion Ankle and Foot beata Ankle/Foot ROM WFL Yes PT-OP-N Lymphedema Start: 10/01/22 17:44 Freq: Status: Active Protocol: Document 10/25/22 10:32 SAK (Rec: 10/25/22 10:38 [facility] [id number]) Lymphedema Measurements Lower Extremity Circumference Measurements Left Affected MT Heads 24.8 cm PT-OP-Q Treatments Start: 10/01/22 17:44 Freq: Status: Active Protocol: Document 10/25/22 10:32 SAK (Rec: 10/25/22 10:39 [facility] [id number]) Lymphedema Treatment Manual Lymphatic Drainage Location for beata LE's Duration 40 Comments supine, s/l, and prone Use of pneumatic pump left LE while supine, PT MLD to trunk and right LE during pump use Sequential Lymphedema Exercises Location Sci-Fit x 5 min after MLD to facilitate lymphatic flow PT-OP-T Assessment and Plan Start: 10/01/22 17:44 Freq: Status: Active Protocol: Document 10/25/22 10:32 SAK (Rec: 10/25/22 10:35 [facility] [id number]) Physical Therapy Assessment Impairments Impairments Activity Tolerance,Edema Goals Two Impairment swelling beata LE's with signs and symptoms consistent with lipedema Short Term Goal (STG) Instruct patient in all aspects of lipedema management including skin care, self-MLD , compression, lymphedema ex STG Duration 11/02/22 Alf Goal (LTG) Decrease lipedema to stable level (no inc or dec greater than 1 cm over the course of 1 week), assist patient in obtaining effective compression that she is able to tolerate, and assure independence with self MLD, lymphedema exercises LTG Duration 12/02/22 One Impairment lymphedema life impact scale Impairment 22% Short Term Goal (STG) Decrease lymphedema life impact scale to no greater than 15% as measure of improved function and quality of life STG Duration 11/02/22 Alf Goal (LTG) Decrease score to no greater than 10% as measure of improved function and quality of life. LTG Duration 12/02/22 Assessment Summary Assessment Decreased circumferential measurements after compression pump and MLD. given info for [email or web address] to obtain lymphedema pump for home use. Patient to pursue and PT to assist as needed. Patient trial layering of compression for first time today. Physical Therapy Plan Frequency and Duration Frequency of Treatment 2x/Week Duration of treatment (weeks) 8 Plan of Care Start Date 10/02/22 Plan of Care End Date 12/02/22 Therapeutic Interventions Therapeutic Interventions Home Exercise Program, Lymphedema Management,Manual Therapy,Patient/Caregiver Education,Self-Care/Home Management,Taping,Therapeutic Exercises Next Visit Focus/Plan Next Note Type Treatment Note Next Visit Plan circumferential measurements MLD beata LE's, further problem- solving compression for beata LE 's, use of compression pump, skin care and lymphedema exercises. Patient to pursue pump through [employer]; information given to patient today.
--- NOTE | 2022-11-01 16:33 | PT.OTN ---
Current Diagnoses Edema, unspecified (11/01/22) Physical Therapy Treatment Note PT-OP-A Visit Information Start: 10/01/22 17:44 Freq: Status: Active Protocol: Document 11/01/22 10:33 [facility]AK (Rec: 11/01/22 12:01 [facility] [id number]) Out-Patient Physical Therapy Visit Information Visit Information Visit Type Treatment Note Visit Start Time 10:32 Visit Stop Time 12:00 Total Visit Minutes 88 Visit Number 6 Evaluation Information Evaluation Date 10/02/22 PT-OP-B Current Condition Start: 10/01/22 17:44 Freq: Status: Active Protocol: Document 10/11/22 10:29 SAK (Rec: 10/11/22 10:40 [facility] [id number]) Current Condition History of Current Condition Onset Date lifetime Current Complaints swelling beata LE's History of Current Condition Reports self-diagnosed after seeing a post online about a person with lipedema, did research online read books, after 4 months went to nurse practicitioner to discuss as she felt she had all symptoms. Referred to Sherry Ramirez for lymphatic massage, felt helpful. Per researched recommendations started going to the pool 2x/wk for 30 min, new goal 3x/wk x 1 hour finds helpful in decreasing edema. Has a dry brush for self- massage, bought a wedge pillow for elevating legs. Doesn't tolerate compression well, has ordered several pairs panty hose style but is only able to tolerate for a couple hours a few times per week. . Travels a lot. Seeing Randa Beal PT for shoulder dysfunction. New dietary and vitamin supplements goals; eating [place] nuts and flax daily, multivitamin, 2000 Vit D, calcium, tumeric, walks dogdrink a lot of water. States she is the heaviest she has ever been feeling swelling is a part of this. Just ordered a vibration plate . Has played around with diet . Pt. is a vegetarian, minimal dairy. Swelling increases with prolonged standing, legs dependent salt. Decreased with massage, pool, elevation. Reports she bruises easily. Prior Treatments and Tests Massage therapy PT-OP-C Subjective Start: 10/25/22 10:32 Freq: Status: Active Protocol: Document 11/01/22 10:33 [facility]AK (Rec: 11/01/22 12:01 [facility] [id number]) OP-PT Subjective Patient Comments Patient Comments Has't heard back from [employer] about a pump. Would like to request through insurance, feels beneficial. Has worn compression daily, sometimes for only a couple hours. Wore double compression yesterday for 4 hours PT-OP-J Posture/Palpation/Skin Start: 10/01/22 17:44 Freq: Status: Active Protocol: Document 10/02/22 14:35 [facility]AK (Rec: 10/04/22 17:54 [facility] [id number]) Palpation Assessment Location beata LE Palpation Findings Edema,Tenderness Palpation Details excess fatty deposits worst at lateral thighs, distal thighs with dimpling, tenderness PT-OP-K Range of Motion Start: 10/01/22 17:44 Freq: Status: Active Protocol: Document 10/02/22 14:35 [facility]AK (Rec: 10/04/22 17:54 [facility] [id number]) Hip Goniometric Range of Motion Hip beata Hip ROM WFL Yes Knee Goniometric Range of Motion Knee beata Knee ROM WFL Yes Ankle and Foot Goniometric Range of Motion Ankle and Foot beata Ankle/Foot ROM WFL Yes PT-OP-N Lymphedema Start: 10/01/22 17:44 Freq: Status: Active Protocol: Document 11/01/22 10:33 [facility]AK (Rec: 11/01/22 12:01 [facility] [id number]) Lymphedema Measurements Lower Extremity Circumference Measurements Left Affected MT Heads 25 cm Mid-foot 24.5 cm Medial Malleolus 26.8 cm 10 cm From Medial Malleolus 30.6 cm 20 cm From Medial Malleolus 39.2 cm 30 cm From Medial Malleolus 44.3 cm 40 cm From Medial Malleolus 44 cm 50 cm From Medial Malleolus 53 cm 60 cm From Medial Malleolus 62.1 cm 70 cm From Medial Malleolus 70.5 cm 80 cm From Medial Malleolus 72.4 cm Knee Joint 49 cm Right Affected MT Heads 25.4 cm Mid-foot 24.5 cm Medial Malleolus 26.5 cm 10 cm From Medial Malleolus 30.9 cm 20 cm From Medial Malleolus 40.8 cm 30 cm From Medial Malleolus 44.3 cm 40 cm From Medial Malleolus 43.9 cm 50 cm From Medial Malleolus 53.2 cm 60 cm From Medial Malleolus 63.5 cm 70 cm From Medial Malleolus 72.8 cm 80 cm From Medial Malleolus 75.8 cm Knee Joint 48 cm PT-OP-Q Treatments Start: 10/01/22 17:44 Freq: Status: Active Protocol: Document 11/01/22 10:33 [facility] (Rec: 11/01/22 12:01 [facility] [id number]) Cardio Equipment Recumbent Stepper (Sci-Fit) Duration (Minutes) 5 Resistance 2 Seat Position 12 Other to facilitate lymphatic flow after MLD and donning compression Self-Care/Home Management Treatment Education Other Education present to observe treatment including pump, PT answered questions. Shown donning gloves for possible use at home with donning compression stockings Lymphedema Treatment Manual Lymphatic Drainage Location for right LE Duration 50 Comments supine during pneumatic sequential pump to left LE. Lymphedema Wrapping Materials patient donned compression tights independently Sequential Lymphedema Exercises Location Sci-Fit x 5 min after MLD to facilitate lymphatic flow Compression Garment Assessment Compression Garment Assessment Details wearing compression tights today pre and post PT treatment Patient Education Other used posters in education of in lymphatic system PT-OP-T Assessment and Plan Start: 10/01/22 17:44 Freq: Status: Active Protocol: Document 11/01/22 10:33 [facility] (Rec: 11/01/22 12:01 [facility] [id number]) Physical Therapy Assessment Impairments Impairments Activity Tolerance,Edema Goals Two Impairment swelling beata LE's with signs and symptoms consistent with lipedema Short Term Goal (STG) Instruct patient in all aspects of lipedema management including skin care, self-MLD , compression, lymphedema ex 11/01/22: goal met STG Duration goal met Correction Goal (LTG) Decrease lipedema to stable level (no inc or dec greater than 1 cm over the course of 1 week), assist patient in obtaining effective compression that she is able to tolerate, and assure independence with self MLD, lymphedema exercises 11/02/22: goal progress LTG Duration 12/02/22 One Impairment lymphedema life impact scale Impairment 22% Short Term Goal (STG) Decrease lymphedema life impact scale to no greater than 15% as measure of improved function and quality of life 11/01/22: goal progress, demonstrating improving ability to self-manage with increased tolerance for compression stockings and tights, increased exercise in pool. Very interested in pneumatic pump for home use. STG Duration 11/02/22 Correction Goal (LTG) Decrease score to no greater than 10% as measure of improved function and quality of life. LTG Duration 12/02/22 Assessment Summary Assessment Again noted decrease in circumferential measurements with MLD and use of pump (see scanned post pump/MLD measurements in chart). and pt asked appropriate questions and demonstrated good understanding. Due to persistent lipolymphedema with hyperplasia recommend she obtain sequential pneumatic pump for home use. Physical Therapy Plan Frequency and Duration Frequency of Treatment 2x/Week Duration of treatment (weeks) 8 Plan of Care Start Date 10/02/22 Plan of Care End Date 12/02/22 Therapeutic Interventions Therapeutic Interventions Home Exercise Program, Lymphedema Management,Manual Therapy,Patient/Caregiver Education,Self-Care/Home Management,Taping,Therapeutic Exercises Next Visit Focus/Plan Next Note Type Treatment Note Next Visit Plan MLD beata LE's, further problem- solving compression for beata LE 's, skin care and lymphedema exercise education. Start process of requesting lymphedema pump
--- NOTE | 2022-11-08 16:07 | PT.OTN ---
Current Diagnoses Edema, unspecified (11/08/22) Physical Therapy Treatment Note PT-OP-A Visit Information Start: 10/01/22 17:44 Freq: Status: Active Protocol: Document 11/08/22 14:26 [facility]AK (Rec: 11/08/22 15:04 [facility] [id number]) Out-Patient Physical Therapy Visit Information Visit Information Visit Type Treatment Note Visit Start Time 14:30 Visit Stop Time 15:55 Total Visit Minutes 85 Visit Number 7 Evaluation Information Evaluation Date 10/02/22 PT-OP-B Current Condition Start: 10/01/22 17:44 Freq: Status: Active Protocol: Document 10/11/22 10:29 SAK (Rec: 10/11/22 10:40 [facility] [id number]) Current Condition History of Current Condition Onset Date lifetime Current Complaints swelling beata LE's History of Current Condition Reports self-diagnosed after seeing a post online about a person with lipedema, did research online read books, after 4 months went to nurse practicitioner to discuss as she felt she had all symptoms. Referred to Sherry Ramirez for lymphatic massage, felt helpful. Per researched recommendations started going to the pool 2x/wk for 30 min, new goal 3x/wk x 1 hour finds helpful in decreasing edema. Has a dry brush for self- massage, bought a wedge pillow for elevating legs. Doesn't tolerate compression well, has ordered several pairs panty hose style but is only able to tolerate for a couple hours a few times per week. . Travels a lot. Seeing Randa Beal PT for shoulder dysfunction. New dietary and vitamin supplements goals; eating [place] nuts and flax daily, multivitamin, 2000 Vit D, calcium, tumeric, walks dogdrink a lot of water. States she is the heaviest she has ever been feeling swelling is a part of this. Just ordered a vibration plate . Has played around with diet . Pt. is a vegetarian, minimal dairy. Swelling increases with prolonged standing, legs dependent salt. Decreased with massage, pool, elevation. Reports she bruises easily. Prior Treatments and Tests Massage therapy PT-OP-C Subjective Start: 10/25/22 10:32 Freq: Status: Active Protocol: Document 11/08/22 14:26 SAK (Rec: 11/08/22 15:04 [facility] [id number]) OP-PT Subjective Patient Comments Patient Comments Hasn't been able to wear compression as much this week; 3 days only including today. Only made it to the pool 1x this week, getting ready for a trip. Hopeful about getting compression pump. PT-OP-J Posture/Palpation/Skin Start: 10/01/22 17:44 Freq: Status: Active Protocol: Document 10/02/22 14:35 SAK (Rec: 10/04/22 17:54 [facility] [id number]) Palpation Assessment Location beata LE Palpation Findings Edema,Tenderness Palpation Details excess fatty deposits worst at lateral thighs, distal thighs with dimpling, tenderness PT-OP-K Range of Motion Start: 10/01/22 17:44 Freq: Status: Active Protocol: Document 10/02/22 14:35 SAK (Rec: 10/04/22 17:54 [facility] [id number]) Hip Goniometric Range of Motion Hip beata Hip ROM WFL Yes Knee Goniometric Range of Motion Knee beata Knee ROM WFL Yes Ankle and Foot Goniometric Range of Motion Ankle and Foot beata Ankle/Foot ROM WFL Yes PT-OP-N Lymphedema Start: 10/01/22 17:44 Freq: Status: Active Protocol: Document 11/08/22 14:26 SAK (Rec: 11/08/22 15:04 [facility] [id number]) Lymphedema Measurements Lower Extremity Circumference Measurements Left Affected MT Heads 24.5 cm Mid-foot 24.8 cm Medial Malleolus 27.5 cm 10 cm From Medial Malleolus 30.8 cm 20 cm From Medial Malleolus 39.6 cm 30 cm From Medial Malleolus 45.5 cm 40 cm From Medial Malleolus 44.2 cm 50 cm From Medial Malleolus 53 cm 60 cm From Medial Malleolus 54 cm 70 cm From Medial Malleolus 69.9 cm 80 cm From Medial Malleolus 72 cm Knee Joint 48.8 cm Right Affected MT Heads 25.3 cm Mid-foot 28.2 cm Medial Malleolus 28.8 cm 10 cm From Medial Malleolus 31.7 cm 20 cm From Medial Malleolus 31.7 cm 30 cm From Medial Malleolus 44.3 cm 40 cm From Medial Malleolus 43.7 cm 50 cm From Medial Malleolus 52.6 cm 60 cm From Medial Malleolus 62.4 cm 70 cm From Medial Malleolus 69.9 cm 80 cm From Medial Malleolus 78 cm Knee Joint 47.5 cm PT-OP-Q Treatments Start: 10/01/22 17:44 Freq: Status: Active Protocol: Document 11/08/22 14:26 [facility] (Rec: 11/08/22 15:04 [facility] [id number]) Cardio Equipment Recumbent Stepper (Sci-Fit) Duration (Minutes) 7 Resistance 2 Seat Position 11 Other to facilitate lymphatic flow after MLD and donning compression Lymphedema Treatment Manual Lymphatic Drainage Location beata LE's Duration 60 Comments supine during pneumatic sequential pump to opp LE; 30 min ea LE with pump and MLD Lymphedema Wrapping Materials patient donned compression tights independently Sequential Lymphedema Exercises Location Sci-Fit x 5 min prior to MLD to facilitate lymphatic flow Comments wearing compression tights Compression Garment Assessment Compression Garment Assessment Details Good fit above ankle to hips, no coverage on ankles and feet , pushing edema to ankles. PT-OP-T Assessment and Plan Start: 10/01/22 17:44 Freq: Status: Active Protocol: Document 11/08/22 14:26 [facility] (Rec: 11/08/22 15:04 [facility] [id number]) Physical Therapy Assessment Impairments Impairments Activity Tolerance,Edema Goals Two Impairment swelling beata LE's with signs and symptoms consistent with lipedema Short Term Goal (STG) Instruct patient in all aspects of lipedema management including skin care, self-MLD , compression, lymphedema ex 11/01/22: goal met STG Duration goal met Correction Goal (LTG) Decrease lipedema to stable level (no inc or dec greater than 1 cm over the course of 1 week), assist patient in obtaining effective compression that she is able to tolerate, and assure independence with self MLD, lymphedema exercises 11/02/22: goal progress LTG Duration 12/02/22 One Impairment lymphedema life impact scale Impairment 22% Short Term Goal (STG) Decrease lymphedema life impact scale to no greater than 15% as measure of improved function and quality of life 11/01/22: goal progress, demonstrating improving ability to self-manage with increased tolerance for compression stockings and tights, increased exercise in pool. Very interested in pneumatic pump for home use. STG Duration 11/02/22 Audio Visual Specialist Goal (LTG) Decrease score to no greater than 10% as measure of improved function and quality of life. LTG Duration 12/02/22 Assessment Summary Assessment Left LE variable measurements, right LE showed mostly dec measurements circumferentially , though beata ankles larger due to tights from ankles to hips only, no foot or ankle coverage. Have rested approval for sequential pneumatic pump. Physical Therapy Plan Frequency and Duration Frequency of Treatment 2x/Week Duration of treatment (weeks) 8 Plan of Care Start Date 10/02/22 Plan of Care End Date 12/02/22 Therapeutic Interventions Therapeutic Interventions Home Exercise Program, Lymphedema Management,Manual Therapy,Patient/Caregiver Education,Self-Care/Home Management,Taping,Therapeutic Exercises Next Visit Focus/Plan Next Note Type Re-Evaluation Next Visit Plan assess progress with self- management, see if sequential pneumatic pump approved
--- NOTE | 2022-12-04 09:29 | PT.OTRE ---
Addendum entered and electronically signed by Rosa Maria Michelle, PT 12/10/22 16:30: Despite conservative lipedema management over the course of approximately 2 months patient has experienced minimal decrease in her circumferential measurements; treatment has included manual lymphatic drainage, skin care, compression (patient now able to wear compression stockings for full day), and lymphedema exercises including aquatic exercise. She is highly compliant to her self-care routine. Recommend she obtain Flexitouch sequential pneumatic lymphedema pump for home use including trunk component due to trunk component to her lipedema. Original Note: Current Diagnoses Edema, unspecified (12/04/22) Past Medical History (Last Updated 03/25/19 @ 09:30 by Alize Castañeda MD) Dermoid cyst of left ovary Visit Care Team Role Provider Type SULTANA Sy Family Provider Non-Staff Primary Care Provider Specialty: Medical Address: [address] [place] [address], [phone] Email: Mable Rome DNP, ARNP Attending Provider Non-Staff Referring Provider Specialty: Medical Address: [address] [place] [address], [id number] Email: Physical Therapy Re-Evaluation PT-OP-A Visit Information Start: 10/01/22 17:44 Freq: Status: Active Protocol: Document 12/04/22 07:57 [facility] (Rec: 12/04/22 09:29 [facility] [id number]) Out-Patient Physical Therapy Visit Information Visit Information Visit Type Re-Evaluation Visit Start Time 08:15 Visit Stop Time 09:20 Total Visit Minutes 65 Visit Number 8 Evaluation Information Evaluation Date 10/02/22 PT-OP-B Current Condition Start: 10/01/22 17:44 Freq: Status: Active Protocol: Document 12/04/22 07:57 [facility]AK (Rec: 12/04/22 09:29 [facility] [id number]) Current Condition History of Current Condition Onset Date lifetime Current Complaints swelling beata LE's History of Current Condition Reports self-diagnosed after seeing a post online about a person with lipedema, did research online read books, after 4 months went to nurse practicitioner to discuss as she felt she had all symptoms. Referred to Sherry Ramirez for lymphatic massage, felt helpful. Per researched recommendations started going to the pool 2x/wk for 30 min, new goal 3x/wk x 1 hour finds helpful in decreasing edema. Has a dry brush for self- massage, bought a wedge pillow for elevating legs. Doesn't tolerate compression well, has ordered several pairs panty hose style but is only able to tolerate for a couple hours a few times per week. . Travels a lot. Seeing Randa Beal PT for shoulder dysfunction. New dietary and vitamin supplements goals; eating [place] nuts and flax daily, multivitamin, 2000 Vit D, calcium, tumeric, walks dogdrink a lot of water. States she is the heaviest she has ever been feeling swelling is a part of this. Just ordered a vibration plate . Has played around with diet . Pt. is a vegetarian, minimal dairy. Swelling increases with prolonged standing, legs dependent salt. Decreased with massage, pool, elevation. Reports she bruises easily. Prior Treatments and Tests Massage therapy PT-OP-C Subjective Start: 10/25/22 10:32 Freq: Status: Active Protocol: Document 12/04/22 07:57 [facility] (Rec: 12/04/22 09:29 [facility] [id number]) OP-PT Subjective Patient Comments Patient Comments Just completed 34 hrs of travel on plane, got 3 hours sleep. Wore double compression on the plane. Dove most every day. PT-OP-J Posture/Palpation/Skin Start: 10/01/22 17:44 Freq: Status: Active Protocol: Document 10/02/22 14:35 [facility] (Rec: 10/04/22 17:54 [facility] [id number]) Palpation Assessment Location beata LE Palpation Findings Edema,Tenderness Palpation Details excess fatty deposits worst at lateral thighs, distal thighs with dimpling, tenderness PT-OP-K Range of Motion Start: 10/01/22 17:44 Freq: Status: Active Protocol: Document 10/02/22 14:35 [facility] (Rec: 10/04/22 17:54 [facility] [id number]) Hip Goniometric Range of Motion Hip Measured in Degrees beata Hip ROM WFL Yes Knee Goniometric Range of Motion Knee Measured in Degrees beata Knee ROM WFL Yes Ankle and Foot Goniometric Range of Motion Ankle and Foot Measured in Degrees beata Ankle/Foot ROM WFL Yes PT-OP-N Lymphedema Start: 10/01/22 17:44 Freq: Status: Active Protocol: Document 12/04/22 07:57 [facility] (Rec: 12/04/22 09:29 [facility] [id number]) Lymphedema Measurements Lower Extremity Circumference Measurements Left Affected MT Heads 25 cm Mid-foot 24.5 cm Medial Malleolus 27.8 cm 10 cm From Medial Malleolus 31.2 cm 20 cm From Medial Malleolus 39.8 cm 30 cm From Medial Malleolus 44.7 cm 40 cm From Medial Malleolus 43.6 cm 50 cm From Medial Malleolus 52.2 cm 60 cm From Medial Malleolus 61.1 cm 70 cm From Medial Malleolus 71.1 cm 80 cm From Medial Malleolus 73.5 cm Knee Joint 48.8 cm Right Affected MT Heads 25.2 cm Mid-foot 24.4 cm Medial Malleolus 27.2 cm 10 cm From Medial Malleolus 32 cm 20 cm From Medial Malleolus 40.7 cm 30 cm From Medial Malleolus 44.6 cm 40 cm From Medial Malleolus 45 cm 50 cm From Medial Malleolus 53.2 cm 60 cm From Medial Malleolus 64 cm 70 cm From Medial Malleolus 71.5 cm 80 cm From Medial Malleolus 75.9 cm Knee Joint 49.5 cm PT-OP-Q Treatments Start: 10/01/22 17:44 Freq: Status: Active Protocol: Document 12/04/22 07:57 [facility] (Rec: 12/04/22 09:29 [facility] [id number]) Lymphedema Treatment Manual Lymphatic Drainage Location beata LE's Duration 40 Comments supine during pneumatic sequential pump to opp LE; 30 min ea LE with pump and MLD Lymphedema Wrapping Materials patient donned compression tights independently PT-OP-T Assessment and Plan Start: 10/01/22 17:44 Freq: Status: Active Protocol: Document 12/04/22 07:57 [facility] (Rec: 12/04/22 09:29 [facility] [id number]) Physical Therapy Assessment Impairments Impairments Activity Tolerance,Edema Goals Two Impairment swelling beata LE's with signs and symptoms consistent with lipedema Short Term Goal (STG) Instruct patient in all aspects of lipedema management including skin care, self-MLD , compression, lymphedema ex 11/01/22: goal met STG Duration goal met Floor Clerk Goal (LTG) Decrease lipedema to stable level (no inc or dec greater than 1 cm over the course of 1 week), assist patient in obtaining effective compression that she is able to tolerate, and assure independence with self MLD, lymphedema exercises 11/02/22: goal progress 12/04/22: good goal progress. Patient did not receive lymphedema pump while gone on vacation; will be following up regarding this with [facility]. Looking at further compression options LTG Duration 03/04/23 One Impairment lymphedema life impact scale Impairment 22% Short Term Goal (STG) Decrease lymphedema life impact scale to no greater than 15% as measure of improved function and quality of life 11/01/22: goal progress, demonstrating improving ability to self-manage with increased tolerance for compression stockings and tights, increased exercise in pool. Very interested in pneumatic pump for home use. 12/04/22: goal met STG Duration goal met Snf Goal (LTG) Decrease score to no greater than 10% as measure of improved function and quality of life. 12/04/22: goal progress LTG Duration 03/04/23 Assessment Summary Assessment Variable measurements today, mostly some mile inc without PT and due to travel. A few dec measurements, no evident pattern. Patient continues with self-management including wearing double compression on airplane during travel and was in water most days for diving during vacation with hydrostatic pressure effects. She has not yet obtained pneumatic pump and I highly recommend this; she will follow up with [facility] and her physician and let me know what else I may need to do to assist with this. Recommend follow-up. PT to be gone x 1 month so patient will schedule in January. Physical Therapy Plan Frequency and Duration Frequency of Treatment 1 VISIT Duration of treatment (weeks) 12 Plan of Care Start Date 12/02/22 Plan of Care End Date 03/04/23 Therapeutic Interventions Therapeutic Interventions Home Exercise Program, Lymphedema Management,Manual Therapy,Patient/Caregiver Education,Self-Care/Home Management,Taping,Therapeutic Exercises Next Visit Focus/Plan Next Note Type Re-Evaluation Next Visit Plan Follow up assessment regardening self management, use of pump in the home, modification and progression of self management as needed.
--- NOTE | 2022-12-04 09:30 | PT.OPPOC ---
Physical, Occupational & Speech Therapy At [facility] Current Diagnoses Edema, unspecified (12/04/22) Visit Care Team Role Provider Type SULTANA Sy Family Provider Non-Staff Primary Care Provider Specialty: Medical Address: [address] [place] [address], [phone] Email: Mable Rome DNP, ARNP Attending Provider Non-Staff Referring Provider Specialty: Medical Address: [address] [place] [address], [place], [address] Email: Plan Of Care PT-OP-T Assessment and Plan Start: 10/01/22 17:44 Freq: Status: Active Protocol: Document 12/04/22 07:57 [facility] (Rec: 12/04/22 09:29 [facility] [id number]) Physical Therapy Assessment Impairments Impairments Activity Tolerance,Edema Goals Two Impairment swelling beata LE's with signs and symptoms consistent with lipedema Short Term Goal (STG) Instruct patient in all aspects of lipedema management including skin care, self-MLD , compression, lymphedema ex 11/01/22: goal met STG Duration goal met Senior Living Goal (LTG) Decrease lipedema to stable level (no inc or dec greater than 1 cm over the course of 1 week), assist patient in obtaining effective compression that she is able to tolerate, and assure independence with self MLD, lymphedema exercises 11/02/22: goal progress 12/04/22: good goal progress. Patient did not receive lymphedema pump while gone on vacation; will be following up regarding this with [facility]. Looking at further compression options LTG Duration 03/04/23 One Impairment lymphedema life impact scale Impairment 22% Short Term Goal (STG) Decrease lymphedema life impact scale to no greater than 15% as measure of improved function and quality of life 11/01/22: goal progress, demonstrating improving ability to self-manage with increased tolerance for compression stockings and tights, increased exercise in pool. Very interested in pneumatic pump for home use. 12/04/22: goal met STG Duration goal met Agricultural Produce Washer Goal (LTG) Decrease score to no greater than 10% as measure of improved function and quality of life. 12/04/22: goal progress LTG Duration 03/04/23 Assessment Summary Assessment Variable measurements today, mostly some mile inc without PT and due to travel. A few dec measurements, no evident pattern. Patient continues with self-management including wearing double compression on airplane during travel and was in water most days for diving during vacation with hydrostatic pressure effects. She has not yet obtained pneumatic pump and I highly recommend this; she will follow up with [facility] and her physician and let me know what else I may need to do to assist with this. Recommend follow-up. PT to be gone x 1 month so patient will schedule in January. Physical Therapy Plan Frequency and Duration Frequency of Treatment 1 VISIT Duration of treatment (weeks) 12 Plan of Care Start Date 12/02/22 Plan of Care End Date 03/04/23 Therapeutic Interventions Therapeutic Interventions Home Exercise Program, Lymphedema Management,Manual Therapy,Patient/Caregiver Education,Self-Care/Home Management,Taping,Therapeutic Exercises Next Visit Focus/Plan Next Note Type Re-Evaluation Next Visit Plan Follow up assessment regardening self management, use of pump in the home, modification and progression of self management as needed. Plan of Care Dates Plan of Care Start Date 12/02/22 Plan of Care End Date 03/04/23 Electronically Signed by: Rosa Maria Michelle PT 12/04/22 [id number] If you are in agreement with this Plan of Care, please return a signed and dated copy. I have reviewed this Plan of Care and certify that the skilled therapy services above are required to meet the patient?s needs. Physician Signature Date Printed Name and Credentials Clinical Instructor Signature Printed Name and Credentials
--- NOTE | 2023-01-23 08:47 | PT.OTN ---
Current Diagnoses Edema, unspecified (01/23/23) Physical Therapy Treatment Note PT-OP-A Visit Information Start: 10/01/22 17:44 Freq: Status: Active Protocol: Document 01/23/23 08:47 SAK (Rec: 01/23/23 09:13 [facility] [id number]) Out-Patient Physical Therapy Visit Information Visit Information Visit Type Treatment Note Visit Start Time 08:47 Visit Number 9 Evaluation Information Evaluation Date 10/02/22 PT-OP-B Current Condition Start: 10/01/22 17:44 Freq: Status: Active Protocol: Document 01/23/23 08:47 SAK (Rec: 01/23/23 09:13 [facility] [id number]) Current Condition History of Current Condition Onset Date lifetime Current Complaints swelling beata LE's History of Current Condition Reports self-diagnosed after seeing a post online about a person with lipedema, did research online read books, after 4 months went to nurse practicitioner to discuss as she felt she had all symptoms. Referred to Sherry Ramirez for lymphatic massage, felt helpful. Per researched recommendations started going to the pool 2x/wk for 30 min, new goal 3x/wk x 1 hour finds helpful in decreasing edema. Has a dry brush for self- massage, bought a wedge pillow for elevating legs. Doesn't tolerate compression well, has ordered several pairs panty hose style but is only able to tolerate for a couple hours a few times per week. . Travels a lot. Seeing Randa Beal PT for shoulder dysfunction. New dietary and vitamin supplements goals; eating [place] nuts and flax daily, multivitamin, 2000 Vit D, calcium, tumeric, walks dogdrink a lot of water. States she is the heaviest she has ever been feeling swelling is a part of this. Just ordered a vibration plate . Has played around with diet . Pt. is a vegetarian, minimal dairy. Swelling increases with prolonged standing, legs dependent salt. Decreased with massage, pool, elevation. Reports she bruises easily. Prior Treatments and Tests Massage therapy PT-OP-C Subjective Start: 10/25/22 10:32 Freq: Status: Active Protocol: Document 12/04/22 07:57 SAK (Rec: 12/04/22 09:29 SAK [id number]) OP-PT Subjective Patient Comments Patient Comments Just completed 34 hrs of travel on plane, got 3 hours sleep. Wore double compression on the plane. Dove most every day. PT-OP-J Posture/Palpation/Skin Start: 10/01/22 17:44 Freq: Status: Active Protocol: Document 10/02/22 14:35 [facility] (Rec: 10/04/22 17:54 [facility] [id number]) Palpation Assessment Location beata LE Palpation Findings Edema,Tenderness Palpation Details excess fatty deposits worst at lateral thighs, distal thighs with dimpling, tenderness PT-OP-K Range of Motion Start: 10/01/22 17:44 Freq: Status: Active Protocol: Document 10/02/22 14:35 SAK (Rec: 10/04/22 17:54 [facility] [id number]) Hip Goniometric Range of Motion Hip beata Hip ROM WFL Yes Knee Goniometric Range of Motion Knee beata Knee ROM WFL Yes Ankle and Foot Goniometric Range of Motion Ankle and Foot beata Ankle/Foot ROM WFL Yes PT-OP-N Lymphedema Start: 10/01/22 17:44 Freq: Status: Active Protocol: Document 01/23/23 08:47 [facility] (Rec: 01/23/23 09:13 [facility] [id number]) Lymphedema Measurements Lower Extremity Circumference Measurements Left Affected MT Heads 25.3 cm Mid-foot 25 cm Medial Malleolus 28 cm 10 cm From Medial Malleolus 31.3 cm 20 cm From Medial Malleolus 40 cm 30 cm From Medial Malleolus 45 cm 40 cm From Medial Malleolus 44.3 cm 50 cm From Medial Malleolus 53.3 cm 60 cm From Medial Malleolus 62.9 cm 70 cm From Medial Malleolus 68.6 cm 80 cm From Medial Malleolus 74 cm Knee Joint 49 cm Right Affected MT Heads 25.5 cm Mid-foot 24.7 cm Medial Malleolus 28.2 cm 10 cm From Medial Malleolus 31.8 cm 20 cm From Medial Malleolus 40.5 cm 30 cm From Medial Malleolus 45 cm 40 cm From Medial Malleolus 45 cm 50 cm From Medial Malleolus 53.4 cm 60 cm From Medial Malleolus 64 cm 70 cm From Medial Malleolus 71.4 cm 80 cm From Medial Malleolus 76 cm Knee Joint 49 cm PT-OP-Q Treatments Start: 10/01/22 17:44 Freq: Status: Active Protocol: Document 01/23/23 08:47 [facility] (Rec: 01/24/23 12:01 [facility] [id number]) Self-Care/Home Management Treatment Education Patient Education Home Exercise Program Caregiver Education review with all aspects of lipidema care Other Education review of all aspects of lipidema care, contact [employer] regarding set-up of lymphedema pump Lymphedema Treatment Other Other circumferential measurements taken PT-OP-T Assessment and Plan Start: 10/01/22 17:44 Freq: Status: Active Protocol: Document 01/23/23 08:47 [facility] (Rec: 01/23/23 09:13 [facility] [id number]) Physical Therapy Assessment Impairments Impairments Activity Tolerance,Edema Goals Two Impairment swelling beata LE's with signs and symptoms consistent with lipedema Short Term Goal (STG) Instruct patient in all aspects of lipedema management including skin care, self-MLD , compression, lymphedema ex 11/01/22: goal met STG Duration goal met Intermediate Goal (LTG) Decrease lipedema to stable level (no inc or dec greater than 1 cm over the course of 1 week), assist patient in obtaining effective compression that she is able to tolerate, and assure independence with self MLD, lymphedema exercises 11/02/22: goal progress 12/04/22: good goal progress. Patient did not receive lymphedema pump while gone on vacation; will be following up regarding this with [facility]. Looking at further compression options LTG Duration 03/04/23 One Impairment lymphedema life impact scale Impairment 22% Short Term Goal (STG) Decrease lymphedema life impact scale to no greater than 15% as measure of improved function and quality of life 11/01/22: goal progress, demonstrating improving ability to self-manage with increased tolerance for compression stockings and tights, increased exercise in pool. Very interested in pneumatic pump for home use. 12/04/22: goal met STG Duration goal met Certified Orthotist Goal (LTG) Decrease score to no greater than 10% as measure of improved function and quality of life. 12/04/22: goal progress LTG Duration 03/04/23 Assessment Summary Assessment Patient has obtained [employer] pump, no rep has come to set up yet. Due to limited time patient encouraged to contact company, also view video per information on instructions in box. Patient circumferential measurements stable, is independent with all aspects of lipidema/lymphedema self- care. she was encouraged to consider talking with a counselor due to being so hard on herself in relation to body image. At this time there are no further PT needs. Patient in agreement with discharge at this time. Physical Therapy Plan Discharge Physical Therapy Discharge Reasons Goals Met
== END 2023-02-27 10:03 | disposition home or self-care (01) ==
LOC: PHYS 08:45
PROVIDERS: Family Provider Nurse Practitioner Family; PCP Nurse Practitioner Family; Referring Provider Nurse Practitioner Family; Visit Provider Nurse Practitioner Family
DX: R60.9 Edema, unspecified (principal)
CPT/HCPCS: 97110; 97140; 97162; 97535

== ENCOUNTER 2023-05-20 12:33 | Emergency (ER) | payer OTHER, SELFPAY ==
[2023-05-20 12:42] VITALS: BP 135/70; PULSE 71; RESP 20; TEMP 36.6; O2SAT 100; BMI 30.4
--- NOTE | 2023-05-21 18:50 | ED.EYEPROB ---
HPI - Eye Problem <Breanna Lowery PA-C - Last Filed: 05/21/23 19:00> General Chief complaint: Eye Problems Stated complaint: flashes L eye, loosing vision sent by [facility] Time Seen by Provider: 05/20/23 13:52 Source: patient Mode of arrival: Wheelchair History of Present Illness HPI Narrative: 58-year-old female with no reported past medical history presents to the ED with an episode of seeing flashes in her right eye. Patient states that she was in a classroom earlier today when she started seeing some flashes in her right eye, noted that she could not see in the right lower visual field. Patient's symptoms lasted for about 3-4 minutes, completely resolved after. Patient denies any visual symptoms currently in the ED. patient denies fever, chills, chest pain, shortness of breath, nausea, vomiting, lightheadedness, dizziness, syncope. Related Data Home Medications Medication Instructions Recorded Confirmed azelaic acid 15 % topical gel 1 applictn topical BID 12/01/18 06/14/21 (Finacea) levonorgestrel 21 mcg/24 hours (8 intrauterine 12/01/18 06/14/21 yrs) 52 mg intrauterine device (Mirena) metronidazole 1 % topical gel 1 applictn topical DAILY 12/01/18 06/14/21 (Metrogel) Previous Rx's Medication Instructions Recorded phenazopyridine 100 mg tablet 100 mg PO TID PRN pain 6 doses #6 05/11/19 (Pyridium) tabs phenazopyridine 200 mg tablet 200 mg PO TID 6 doses #6 tabs 11/22/21 (Pyridium) Allergies Allergy/AdvReac Type Severity Reaction Status Date / Time ciprofloxacin [From Cipro] Allergy Verified 06/14/21 10:05 Review of Systems <Breanna Lowery PA-C - Last Filed: 05/21/23 19:00> Constitutional Constitutional: Denies chills, Denies fatigue, Denies fever(s), Denies frequent falls, Denies lethargy and Denies weakness Eyes Eyes: Denies change in vision, Denies eye discharge, Reports floaters, Denies irritation, Denies loss of vision and Reports seeing flashes ENT Ears, Nose, Mouth, and Throat: Denies change in voice, Denies dizziness, Denies neck pain, Denies sore throat and Denies throat swelling Cardiovascular Cardiovascular: Denies chest pain, Denies irregular heart rhythm, Denies lightheadedness, Denies palpitations, Denies dyspnea, Denies dyspnea on exertion and Denies orthopnea Respiratory Respiratory: Denies cough, Denies dyspnea, Denies dyspnea on exertion and Denies wheezing Gastrointestinal Gastrointestinal: Denies abdominal pain, Denies change in bowel habits, Denies diarrhea, Denies nausea and Denies vomiting Musculoskeletal Musculoskeletal: Denies neck pain and Denies numbness Integumentary/Breasts Skin/Breast: Denies pruritus, Denies erythema, Denies rash and Denies wounds Neurologic Neurologic: Denies behavioral changes, Denies confusion, Denies dizziness, Denies frequent falls, Denies loss of vision, Denies numbness and Denies weakness Psychiatric Psychiatric: Denies anxiety, Denies behavioral changes, Denies confusion, Denies depression, Denies homicidal ideation and Denies suicidal ideation Endocrine Endocrine: Denies fatigue, Denies flushing and Denies palpitations Hematologic/Lymphatic Hematologic/Lymphatic: Denies easy bruising Allergic/Immunologic Allergic/Immunologic: Denies urticaria, Denies throat swelling and Denies wheezing Patient History <Breanna Lowery PA-C - Last Filed: 05/21/23 19:00> Medical History Dermoid cyst of left ovary Social History Smoking Status: Never smoker Smoking Status: Never smoker alcohol intake frequency: holidays/special occasions only Substance Use Type: does not use Exam <Breanna Lowery PA-C - Last Filed: 05/21/23 19:00> Narrative Exam Narrative: Const General:?cooperative, healthy appearing and comfortable [facility] Head:?normal to inspection Ears:?hearing grossly normal bilaterally Nose:?external nose normal Face and sinus:?normal facial exam and sinuses nontender Mouth:?oral mucosae normal Throat:?posterior oropharynx normal Eyes General:?appearance normal, both eyes and all related structures; vision grossly normal; no visual field defects; no signs of retinal detachment or vitreous hemorrhage on bedside ultrasound Neck Neck:?normal visual inspection and no lymphadenopathy noted Resp Effort & Inspection:?normal respiratory effort Auscultation:?clear to auscultation bilaterally Cardio Rate:?regular rate Rhythm:?regular rhythm Neuro General:?patient alert, patient awake and patient oriented x3; PERRLA Initial Vital Signs Initial Vital Signs: Vital Signs Temperature 97.9 F 05/20/23 12:42 Pulse Rate 71 05/20/23 12:42 Respiratory Rate 20 05/20/23 12:42 Blood Pressure 135/70 05/20/23 12:42 Pulse Oximetry 100 05/20/23 12:42 Oxygen Delivery Method Room Air 05/20/23 12:42 <Opal Garrison MD - Last Filed: 05/22/23 07:20> Initial Vital Signs Initial Vital Signs: Vital Signs Temperature 97.9 F 05/20/23 12:42 Pulse Rate 71 05/20/23 12:42 Respiratory Rate 20 05/20/23 12:42 Blood Pressure 135/70 05/20/23 12:42 Pulse Oximetry 100 05/20/23 12:42 Oxygen Delivery Method Room Air 05/20/23 12:42 MDM - Eye Problem <Breanna Lowery PA-C - Last Filed: 05/21/23 19:00> MDM Narrative Medical decision making narrative: 58-year-old female with no reported past medical history presents to the ED with an episode of seeing flashes in her right eye. Concern for retinal detachment versus vitreous hemorrhage versus other. Bedside ultrasound without sides of retinal detachment or vitreous hemorrhage. Visual acuity grossly normal. Patient is without symptoms after that 1 episode. Patient feels safe following up with a global sales director as soon as possible. ED return precautions discussed with patient. Patient verbalized understanding. Medical records reviewed: Yes Discharge Plan Departure Patient Disposition: Home Clinical Impression: Flashing lights Instructions: DI for Eye Floaters Activity Restrictions/Additional Instructions: You were evaluated in the ED today for a brief period of flashes in the right eye. It is reassuring that your symptoms have completely resolved. The bedside ultrasound did not show signs of retinal detachment. It is also possible that these are just flashes associated with normal aging or a ocular migraine. However, we recommend that you follow-up with an global sales director as soon as possible for further evaluation. You may call [facility] at [phone] for an appointment. Return to the ED if your symptoms recur or worsen. Prescriptions: No Action phenazopyridine [Pyridium] 100 mg tablet 100 mg PO TID PRN (Reason: pain) 0 Days Qty: 6 0RF phenazopyridine [Pyridium] 200 mg tablet 200 mg PO TID 0 Days Qty: 6 0RF Mirena 20 mcg/24 hours (5 yrs) 52 mg intrauterine device Intrauterine metronidazole [Metrogel] 1 % gel 1 applictn TOP DAILY azelaic acid [Finacea] 15 % gel 1 applictn TOP BID Referrals: Shanae Ventura ARNP [Primary Care Provider] - Stand Alone Forms: Patient Portal/API ED Sign-out <Opal Garrison MD - Last Filed: 05/22/23 07:20> Cosign ED Attending Cosignature Attestation: I did not see this patient. I was available all times for consultation.
== END 2023-05-20 14:45 | disposition home or self-care (01) ==
PROVIDERS: Emergency Provider Student in an Organized Health Care Education/Training Program; Family Provider Nurse Practitioner Family; PCP Nurse Practitioner Family
DX: H53.8 Other visual disturbances (principal)
CPT/HCPCS: 99281

== ENCOUNTER → 2023-06-05 16:13 | Outpatient (CLI) | payer OTHER, SELFPAY ==
[2023-06-05 16:58] LABS: Add Manual Diff / Slide Review NO; Basophils Absolute Auto 100 /uL (0-100); Eosinophils Absolute Auto 200 /uL (0-450); Eosinophils Percent Auto 3.3 % (2-4); Hematocrit 38.4 % (36-46); Hemoglobin 13.2 g/dL (12.0-16.0); Lymphocytes Absolute Auto 2100 /uL (1100-4500); Lymphocytes Percent Auto 38.3 % (25-40); Mean Corpuscular HGB Conc 34.4 % (30-36); Mean Corpuscular Hemoglobin 31.5 PG (26-34); Mean Corpuscular Volume 91.7 fL (80-100); Monocytes Absolute Auto 400 /uL (0-900); Monocytes Percent Auto 7.6 % (3-14); Neutrophils Absolute Auto 2700 /uL (1500-7000); Neutrophils Percent Auto 49.8 % (50-75); Platelet Count 173 X10^3/uL (150-400); Red Blood Cell Count 4.19 X10^6/uL (4.0-5.2); Red Cell Distribution Width 13.2 % (11.6-14.8); White Blood Cell Count 5.5 X10^3/uL (4.5-11.0)
== END ==
PROVIDERS: Family Provider Nurse Practitioner Family; PCP Nurse Practitioner Family; Referring Provider Nurse Practitioner Family; Visit Provider Nurse Practitioner Family
DX: D72.819 Decreased white blood cell count, unspecified (principal)
CPT/HCPCS: 36415; 85025

== ENCOUNTER → 2023-07-21 12:24 | Outpatient (CLI) | payer OTHER, SELFPAY ==
--- NOTE | 2023-07-21 16:11 | PC.NURSE ---
Pt came to ED looking for results of Walk in test. Printed and reviewed w/ Dr. Vega who stated there would not typically be a prescription. Encouraged to f/u as needed and indicated and return for any needs, concerns, worsening of symptoms.
== END ==
PROVIDERS: Family Provider Nurse Practitioner Family; PCP Nurse Practitioner Family; Visit Provider Nurse Practitioner Family
DX: R30.0 Dysuria (principal)
CPT/HCPCS: 87086; 87210

== ENCOUNTER → 2024-04-26 16:50 | Outpatient (CLI) | payer OTHER, SELFPAY | PROVIDERS: Family Provider Nurse Practitioner Family; PCP Nurse Practitioner Family; Visit Provider Nurse Practitioner Family | DX: J02.9 Acute pharyngitis, unspecified (principal) | CPT/HCPCS: 87070 ==

== ENCOUNTER → 2024-04-28 13:46 | Outpatient (CLI) | payer OTHER, SELFPAY ==
[2024-04-28 14:50] LABS: Influenza A - CEPHEID Flu A NEGATIVE (NEGATIVE); Influenza B - CEPHEID Flu B NEGATIVE (NEGATIVE); Respiratory Syncytial Virus Negative (Negative)
[2024-04-28 14:53] LABS: COVID-19 CEPHEID 4-PLEX PCR Negative (Negative)
== END ==
PROVIDERS: Family Provider Nurse Practitioner Family; PCP Nurse Practitioner Family; Visit Provider Physician Assistant Surgical
DX: R05.1 Acute cough (principal)
CPT/HCPCS: 0241U

== ENCOUNTER → 2024-04-28 13:59 | Outpatient (CLI) | payer OTHER, SELFPAY ==
--- NOTE | 2024-04-28 14:00 | DI.RAD.S_ITS ---
PROCEDURE: XR CHEST 2V INDICATIONS: SOB, cough TECHNIQUE: 2 views of the chest were acquired. COMPARISON: None. FINDINGS: Surgical changes and devices: None. Lungs and pleura: Lungs are clear. No pleural effusions or pneumothorax. Mediastinum: Mediastinal contours are normal. Heart size is normal. Bones and chest wall: No suspicious bony abnormalities. Soft tissues appear unremarkable. IMPRESSION: No acute cardiopulmonary abnormality is seen. Dictated by: Donn Christopher M.D. on 04/28/2024 at 14:50 Approved by: Donn Christopher M.D. on 04/28/2024 at 14:51
== END ==
LOC: RAD 14:00
PROVIDERS: Family Provider Nurse Practitioner Family; PCP Nurse Practitioner Family; Referring Provider Physician Assistant Surgical; Visit Provider Physician Assistant Surgical
DX: R06.02 Shortness of breath (principal); R05.1 Acute cough
CPT/HCPCS: 0241U; 71046

== ENCOUNTER → 2025-03-02 11:12 | Outpatient (CLI) | payer OTHER, SELFPAY ==
--- NOTE | 2025-03-02 11:13 | DI.MRI.S_ITS ---
PROCEDURE: MR HIP RT WO CON INDICATIONS: RT HIP PAIN TECHNIQUE: Noncontrast coronal T1 spin echo and STIR through the bony pelvis. Coronal and axial T2 fast spin echo with fat saturation, sagittal T1 spin echo, and oblique axial T2 fast spin echo with fat saturation through the hip. COMPARISON: None. FINDINGS: Image quality: Excellent. Bones and joints: Asymmetric moderate right hip joint osteoarthritic changes are seen with near complete loss of joint space, subchondral sclerosis and subcortical cystic changes. No acute fracture or dislocation. No avascular necrosis of the femoral heads. Degenerative disc disease in visualized lower lumbar spine is seen. Tendons and ligaments: Low-grade partial-thickness tear involving distal right gluteus medius tendon at its insertion on greater trochanter extending to musculotendinous junction. Distal right gluteus minimus tendinosis is also seen. No fluid distension of trochanteric bursa. The nearby proximal iliotibial band also appears intact. The iliopsoas tendon appears intact, without adjacent bursal fluid collections or evidence for impingement syndrome. The origin of the hamstring tendon is intact at the ischial tuberosity. Labrum and cartilage: Diffuse thinning of articulating cartilage over right femoral head with global signal abnormality and fraying throughout right superior acetabular labrum suggestive of extensive labral tear. Soft tissues: Visualized muscles demonstrate normal bulk and internal signal. Quadratus femoris muscle demonstrates no internal edema to suggest ischiofemoral impingement. The proximal sciatic neurovascular bundle appears normal adjacent to the hamstring tendons. No free pelvic fluid. Bladder wall thickness is normal. Genitourinary structures and bowel loops appear normal where visualized. IMPRESSION: 1. Asymmetric moderate right hip joint osteoarthritis. No acute fracture or dislocation. No evidence of avascular necrosis of femoral head. Degenerative disc disease in visualized lower lumbar spine. Neml-xr-lifnlccg left hip joint osteoarthritis. 2. Low-grade partial-thickness tear involving distal right gluteus medius tendon extending to musculotendinous junction. Distal right gluteus minimus tendinosis. No other muscle or tendon signal abnormalities. No abnormal bursal fluid distension. 3. Suggestion of fairly extensive superior anterior right acetabular labral tear. Dictated by: Brooks Marshall M.D. on 03/02/2025 at 17:12 Approved by: Brooks Marshall M.D. on 03/02/2025 at 17:29
== END ==
PROVIDERS: Family Provider Nurse Practitioner Family; PCP Nurse Practitioner Family; Referring Provider Nurse Practitioner Family; Visit Provider Orthopaedic Surgery
DX: M16.0 Bilateral primary osteoarthritis of hip (principal); S76.011A Strain of muscle, fascia and tendon of right hip, initial encounter; M51.369 Other intervertebral disc degeneration, lumbar region without mention of lumbar back pain or lower extremity pain
CPT/HCPCS: 73721

== ENCOUNTER → 2025-05-08 06:58 | Outpatient (CLI) | payer OTHER, SELFPAY ==
[2025-05-08 10:43] LABS: Hemoglobin A1C% w Est Avg Glu 4.9 % (4.0-6.0)
[2025-05-08 11:07] LABS: Alanine Aminotransferase 17 IU/L (<35); Albumin 4.8 g/dL (3.5-5.0); Albumin Globulin Ratio 1.8 (1.0-2.8); Alkaline Phosphatase 54 U/L (38-126); Blood Urea Nitrogen 6 mg/dL (7-17); Calcium 9.3 mg/dL (8.4-10.2); Carbon Dioxide 22 mmol/L (22-32); Chloride 108 mmol/L (98-107); Cholesterol 166 mg/dL (140-199); Estimated Glomerular Filt Rate > 60 mL/min (>60); Globulin 2.7 g/dL (1.7-4.1); Glucose 75 mg/dL (70-99); HDL Cholesterol 62 mg/dL (40-60); HEMOLYSIS < 15 (0-50); Potassium 3.8 mmol/L (3.4-5.1); Sodium 141 mmol/L (137-145); Total Protein 7.5 g/dL (6.3-8.2); Triglycerides 87 mg/dL (35-150)
[2025-05-08 11:18] LABS: Vitamin D 25 Hydroxy (D3) 43.6 ng/mL (30.0-100.0)
[2025-05-08 11:30] LABS: TSH w/ Reflex to FT4 2.45 uIU/mL (0.47-4.68)
[2025-05-08 11:38] LABS: Ferritin 75 ng/mL (11-264)
[2025-05-08 11:51] LABS: Vitamin B12 Reflex MMA if <400 343 pg/mL (239-931)
[2025-05-09 08:11] LABS: CRP, High Sensitivity 1.39 mg/L (0.00-3.00)
[2025-05-11 06:36] LABS: Insulin Level Total 3.0 uIU/mL (2.6-24.9)
== END ==
PROVIDERS: Family Provider Nurse Practitioner Family; PCP Family Medicine; Referring Provider Family Medicine; Visit Provider Family Medicine
DX: E66.811 Obesity, class 1 (principal); I89.0 Lymphedema, not elsewhere classified; E78.5 Hyperlipidemia, unspecified; E55.9 Vitamin D deficiency, unspecified; Z78.9 Other specified health status; E61.1 Iron deficiency
CPT/HCPCS: 36415; 80053; 80061; 82306; 82607; 82728; 83036; 83525; 83921; 84443; 86140

== ENCOUNTER → 2025-05-31 13:55 | Outpatient (CLI) | payer OTHER, SELFPAY ==
--- NOTE | 2025-05-31 13:57 | EKG_ITS ---
[facility] [address] [place] [id number] Test Date: 2025-05-31 Pat Name: Sy Mast Department: [facility] Room: Gender: Female Healthcare Consultant: LUIS : 1965 Requested By: Order Number: [id number] Reading MD: Kelvin Pascual MD Measurements Intervals [place] Rate: 57 P: 47 [place]: 188 QRS: 71 QRSD: 84 T: 31 QT: 438 QTc: 426 Interpretive Statements Sinus bradycardia Electronically Signed On 06-06-2025 9:02:39 PST by Kelvin Pascual MD
[2025-05-31 15:51] LABS: Add Manual Diff / Slide Review NO; Hematocrit 38.2 % (36-46); Hemoglobin 13.0 g/dL (12.0-16.0); Lymphocytes Absolute Auto 1600 /uL (1100-4500); Mean Corpuscular HGB Conc 34.1 % (30-36); Mean Corpuscular Hemoglobin 31.8 PG (26-34); Mean Corpuscular Volume 93.2 fL (80-100); Platelet Count 169 X10^3/uL (150-400)
== END ==
PROVIDERS: Family Provider Nurse Practitioner Family; PCP Family Medicine; Referring Provider Orthopaedic Surgery Adult Reconstructive Orthopaedic Surgery; Visit Provider Orthopaedic Surgery Adult Reconstructive Orthopaedic Surgery
DX: Z01.818 Encounter for other preprocedural examination (principal); M21.851 Other specified acquired deformities of right thigh
CPT/HCPCS: 36415; 85025; 93005; 93010

== ENCOUNTER → 2025-07-12 11:09 | Outpatient (CLI) | payer OTHER, SELFPAY ==
[2025-07-12 14:01] LABS: TSH w/ Reflex to FT4 1.52 uIU/mL (0.47-4.68)
== END ==
PROVIDERS: Family Provider Nurse Practitioner Family; PCP Family Medicine; Referring Provider Family Medicine; Visit Provider Family Medicine
DX: Z51.81 Encounter for therapeutic drug level monitoring (principal); E03.9 Hypothyroidism, unspecified
CPT/HCPCS: 36415; 84443